=== PATIENT | male | born 1980 | race Caucasian/White ===

== ENCOUNTER 2023-12-14 13:10 | Inpatient (IN) | payer OTHER, SELFPAY ==
[2023-12-14] VITALS (20 sets, daily range): BP systolic 88–181; BP diastolic 57–108; BMI 26.0; BMI 25.9
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
[2023-12-14] MEDS: NSS 1000 IV ×3 (10:37→18:23)
[2023-12-14] MEDS: DILAUDID 1 MG IV (10:40)
[2023-12-14] MEDS: TYLENOL/FEVERALL 650 MG RECTAL (10:44)
[2023-12-14 10:45] LABS: % Basophils 0.4 % (0-2); % Immature Granulocytes 0.6 % (0-0.5); % Lymphocytes 3.3 % (20.5-51.1); % Monocytes 6.5 % (1.7-9.3); % Neutrophils 89.2 % (42.2-75.2); Absolute Basophils 0.1 10^3/uL (0-0.2); Absolute Immature Granulocytes 0.1 10^3/uL (0-0.05); Absolute Lymphocytes 0.8 10^3/uL (1.2-3.4); Absolute Monocytes 1.5 10^3/uL (0.1-0.6); Absolute Neutrophils 20.3 10^3/uL (1.4-6.5); Hematocrit 43.1 % (39.0-52.0); Hemoglobin 15.2 g/dL (13.0-18.0); Mean Corp Hgb Conc. 35.3 g/dL (33.0-37.0); Mean Corpuscular Hgb 31.5 pg (27.0-31.0); Mean Corpuscular Volume 89.4 fL (80.0-94.0); Nucleated Red Blood Cells % 0 % (-); Platelet Count 200 10^3/uL (130-400); Red Blood Cell Count 4.82 10^6/uL (4.70-6.10); Red Cell Dist. Width 12.9 % (11.5-14.5); White Blood Cell Count 22.8 10^3/uL (4.8-10.8)
[2023-12-14 10:46] LABS: Urine Albumin 2+ (Neg - Trace); Urine Bilirubin Negative (Negative); Urine Character Slightly Cloudy (Clear); Urine Color Yellow; Urine Glucose Negative (Negative); Urine Ketone Negative (Negative); Urine Leukocyte 2+ (Negative); Urine Nitrite Negative (Negative); Urine Occult Blood 4+ (Negative); Urine Urobilinogen Negative (Neg - 1+)
[2023-12-14] MEDS: ZOFRAN 4 MG IV ×2 (10:48→18:11)
[2023-12-14 10:54] LABS: Glucose - Point of Care 134 mg/dl (70-99)
[2023-12-14 10:59] LABS: Lactic Acid 2.2 mmol/L (0.7-2.0)
[2023-12-14 11:08] LABS: Urine Amorphous Seen; Urine Mucus Few; Urine Red Blood Cell >100 /HPF (0-2); Urine Squamous Cell 16-20 /LPF (Few); Urine White Cell >100 /HPF (0-5)
[2023-12-14 11:09] LABS: Urine Bacteria Few (Negative)
[2023-12-14 11:11] LABS: ALT (SGPT) 23 U/L (0-50); AST (SGOT) 30 U/L (17-59); Albumin 4.3 g/dl (3.5-5.0); Alkaline Phosphatase 63 U/L (38-126); Blood Urea Nitrogen 25 mg/dl (9-20); Calcium 9.2 mg/dl (8.4-10.2); Carbon Dioxide 26 mmol/L (22-30); Chloride 101 mmol/L (98-107); Estimated Creatinine Clearance 109 ml/min; Glucose 125 mg/dl (70-99); Potassium 3.6 mmol/L (3.5-5.1); Sodium 138 mmol/L (135-145); Total Protein 7.2 g/dl (6.3-8.2); eGFR > 60.00
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
[2023-12-14] MEDS: MAXIPIME 2000 MG IV (12:42)
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
[2023-12-14] MEDS: PERCOCET 5/325 1 TABLET PO (15:26)
[2023-12-14 15:34] LABS: Lactic Acid 1.2 mmol/L (0.7-2.0)
[2023-12-14] MEDS: FLEXERIL 10 MG PO ×2 (18:14→23:11)
[2023-12-14] MEDS: LIORESAL 20 MG PO ×2 (18:24→23:11)
[2023-12-14] MEDS: LIORESAL PO (18:24)
[2023-12-14] MEDS: MAXALT MLT (ORALLY DISINTEGRATING) 10 MG PO (18:25)
[2023-12-14 18:30] LABS: Hematocrit 38.7 % (39.0-52.0); Hemoglobin 13.3 g/dL (13.0-18.0)
[2023-12-14] MEDS: PROTONIX IV 40 MG IV (23:08)
[2023-12-14] MEDS: TOPAMAX 12.5 MG PO (23:09)
[2023-12-14] MEDS: NSS (PRESERVATIVE FREE) 10 ML IV (23:09)
[2023-12-14] MEDS: COLACE 100 MG PO (23:09)
[2023-12-14] MEDS: MELATONIN 6 MG PO (23:11)
[2023-12-14] MEDS: DULCOLAX 10 MG RECTAL (23:12)
[2023-12-14] MEDS: MAXIPIME 1000 MG IV (23:12)
[2023-12-14] MEDS: TYLENOL 650 MG PO (23:12)
[2023-12-14] MEDS: STERILE WATER FOR INJECTION 10 ML IV (23:13)
[2023-12-14] MEDS: COMPAZINE 5 MG IV (23:54)
[2023-12-15] MEDS: NSS 1000 IV ×3 (00:46→16:38)
[2023-12-15] MEDS: TYLENOL 650 MG PO (05:04)
[2023-12-15] MEDS: MAXIPIME 1000 MG IV ×2 (05:07→14:06)
[2023-12-15] MEDS: STERILE WATER FOR INJECTION 10 ML IV ×2 (05:07→14:05)
[2023-12-15 05:36] LABS: Hematocrit 37.6 % (39.0-52.0); Hemoglobin 12.7 g/dL (13.0-18.0); Mean Corp Hgb Conc. 33.8 g/dL (33.0-37.0); Mean Corpuscular Hgb 31.6 pg (27.0-31.0); Mean Corpuscular Volume 93.5 fL (80.0-94.0); Mean Platelet Volume 10.5 fL (7.4-10.4); Platelet Count 120 10^3/uL (130-400); Red Blood Cell Count 4.02 10^6/uL (4.70-6.10); White Blood Cell Count 15.1 10^3/uL (4.8-10.8)
[2023-12-15 06:01] LABS: ALT (SGPT) 18 U/L (0-50); AST (SGOT) 25 U/L (17-59); Albumin 3.1 g/dl (3.5-5.0); Alkaline Phosphatase 52 U/L (38-126); Blood Urea Nitrogen 25 mg/dl (9-20); Calcium 8.4 mg/dl (8.4-10.2); Carbon Dioxide 23 mmol/L (22-30); Chloride 107 mmol/L (98-107); Estimated Creatinine Clearance 121 ml/min; Glucose 90 mg/dl (70-99); Potassium 4.1 mmol/L (3.5-5.1); Sodium 137 mmol/L (135-145); Total Bilirubin 1.1 mg/dl (0.2-1.3); Total Protein 5.7 g/dl (6.3-8.2); eGFR > 60.00
[2023-12-15] MEDS: COMPAZINE 5 MG IV (06:19)
[2023-12-15 07:00] VITALS: BP 138/69
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
[2023-12-15] MEDS: COLACE 100 MG PO ×2 (08:32→20:17)
[2023-12-15] MEDS: PROTONIX IV 40 MG IV ×2 (08:32→20:18)
[2023-12-15] MEDS: LIORESAL 20 MG PO ×4 (08:33→21:49)
[2023-12-15] MEDS: NSS (PRESERVATIVE FREE) 10 ML IV ×2 (08:33→20:18)
[2023-12-15] MEDS: FLEXERIL 10 MG PO ×3 (08:33→21:49)
[2023-12-15] MEDS: DULCOLAX 10 MG RECTAL (08:33)
[2023-12-15] MEDS: TOPAMAX 12.5 MG PO ×2 (08:38→20:17)
--- NOTE | 2023-12-15 09:53 | W.PN.URO.CBU ---
Today's Communication / Plan
-
FOR CAT SCAN
Assessment / Plan
-
COMPLEX UTI WBC TRENDING DOWN STILL FEBRILE WILL LEAVE MACDONALD CHECK CAT SCAN AWAIT CXS
Diagnosis
-
Date of Service: December 15, 2023
-
Patient Diagnosis:NEUROGENIC BLADDER COMPLEX UTI MACDONALD TRAUMA
Post Op Day:
Subjective
-
PARALYZED
Objective
-
Vital Signs
Temp Pulse Resp BP Pulse Ox
100.2 F 91 16 138/69 99
12/15/23 07:00 12/15/23 07:00 12/15/23 07:00 12/15/23 07:00 12/15/23 07:00
Intake and Output
12/14/23 12/15/23 12/16/23
06:59 06:59 06:59
Intake Total 240 / 240
Output Total 750 / 750
Balance -510 / -510
Intake:
Oral fluids 240 / 240
Output:
Urine, Macdonald 250 / 250
Urine, Voided 500 / 500
Other:
Number of immeasurable emeses? 1
Laboratory Results
12/15/23 04:47
12/15/23 04:47
Review of Systems
-
Constitutional: Fever
: Difficulty Voiding
Physical Exam
-
General - well developed, well nourished, no acute distress
Chest - clear bilaterally
Abdomen - soft, non-tender, positive bowel sounds, no CVAT, no incisional pain or distention
Genitalia - normal
Rectal - normal
Skin - warm & dry with no rash
Neuro - PARALYZED
Extremities -
Incision - clean, dry
Dressing - clean, dry, intact
Counseling
-
0
Care Review
Data Reviewed
Discussed with: Hospitalist
[2023-12-15] MEDS: COMPAZINE 10 MG IV (11:50)
[2023-12-15] MEDS: MAXALT MLT (ORALLY DISINTEGRATING) 10 MG PO (12:43)
[2023-12-15] MEDS: ProAmatine 15 MG PO (12:43)
[2023-12-15] MEDS: SENOKOT 17.1999999999999993 MG PO (12:50)
--- NOTE | 2023-12-15 14:49 | CM ---
Patient seen at bedside with physician. Patient complaining of migraine. CM will continue to follow for discharge planning needs.
Plan; home with [facility] vs [facility] pending assessments
[2023-12-15 15:00] VITALS: BP 141/66
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
--- NOTE | 2023-12-15 15:41 | W.PN.HOSP.TC ---
Today's Communication/Plan
-
cefepime changed to Invanz by ID
repeat blood cultures
treat KRAFT
Assessment / Plan
Assessment / Plan
pt is a 43 year old male
Sepsis with lactic acidosis (by criteria and present on admission) responded to IV fluids--due to ESBL E. coli bacteremia and likely UTI--agree with cefepime--consult ID--continue IV fluids, improved WBC and lactic acid --CT scan without
obstructive uropathy
headache--likely migraine--apprec neuro--tylenol, compazine, rizatriptan
Hematemesis--patient describes 'vomiting blood that filled the trash can' this morning but his clinical picture does not match--hemoglobin 15 on admission, now 12.7--trend--some drop could be dilutional from IVF--will start IV PPI twice
daily--apprec GI
Hematuria--consistent with urinary tract infection and/or trauma from self-catheterization--patient states that he had trouble inserting the catheter and met resistance--Chun catheter is in place now--apprec urology
Paraplegia--usually goes to [place] [facility] for therapy--will continue PT and OT here
DVT prophylaxis
CODE STATUS--full code
Anticipated Discharge: > 48 hours
Subjective/Interval History
-
Date of Service: December 15, 2023
pt c/o headache
Objective Data
-
Labs:
Laboratory Results
12/15/23
04:47
WBC 15.1 H
Hgb 12.7 L
Hct 37.6 L
Plt Count 120 L D
Sodium 137
Potassium 4.1
Chloride 107
Carbon Dioxide 23
BUN 25 H
Creatinine 0.9
Glucose 90
Calcium 8.4
Total Bilirubin 1.1
AST 25
ALT 18
Alkaline Phosphatase 52
Vital Signs:
max temp for 24 hours
12/14/23
23:30
Temp 102.5 F H
Vital Signs
Temp Pulse Resp BP Pulse Ox
99.1 F 91 16 119/78 99
12/15/23 11:40 12/15/23 07:00 12/15/23 07:00 12/15/23 12:43 12/15/23 07:00
I&O
12/14/23 12/15/23 12/16/23
06:59 06:59 06:59
Intake Total 240 / 240
Output Total 750 / 750
Balance -510 / -510
Review of Systems
-
All other systems: Reviewed and negative
Neuro: Reports Headache
Physical Exam
-
General: Well Developed, Well Nourished and Other (appears uncomfortable)
HEENT: Normocephalic and Atraumatic
Respiratory: Clear to Auscultation; Negative Wheezes or Rhonchi
Cardiac: Regular Rhythm and S1/S2; Negative Murmur
GI: Soft, Nontender, Nondistended and Normal Bowel Sounds
Musculoskeletal: No Clubbing, No Cyanosis and No Edema
Neuro: Other (muscle atrophy from paraplegia)
[2023-12-15] MEDS: INVANZ 60 MG IV (16:38)
[2023-12-15] MEDS: TYLENOL 1000 MG PO ×2 (16:40→21:49)
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
[2023-12-15 20:32] VITALS: BP 106/67
[2023-12-15] MEDS: MELATONIN 6 MG PO (21:49)
[2023-12-16 00:04] VITALS: BP 124/68
[2023-12-16] MEDS: NSS 1000 IV ×3 (01:42→20:54)
[2023-12-16] MEDS: PERCOCET 5/325 1 TABLET PO (02:52)
[2023-12-16] MEDS: ZOFRAN 4 MG IV (02:53)
[2023-12-16 06:18] LABS: Hemoglobin 10.5 g/dL (13.0-18.0); Mean Corp Hgb Conc. 33.9 g/dL (33.0-37.0); Mean Corpuscular Hgb 31.2 pg (27.0-31.0); Mean Platelet Volume 9.9 fL (7.4-10.4); Platelet Count 115 10^3/uL (130-400); Red Blood Cell Count 3.37 10^6/uL (4.70-6.10); Red Cell Dist. Width 12.9 % (11.5-14.5); White Blood Cell Count 11.6 10^3/uL (4.8-10.8)
[2023-12-16 06:46] LABS: Blood Urea Nitrogen 20 mg/dl (9-20); Calcium 8.1 mg/dl (8.4-10.2); Carbon Dioxide 20 mmol/L (22-30); Chloride 109 mmol/L (98-107); Estimated Creatinine Clearance > 125 ml/min; Glucose 94 mg/dl (70-99); Potassium 3.7 mmol/L (3.5-5.1); Sodium 137 mmol/L (135-145); eGFR > 60.00
[2023-12-16 07:00] VITALS: BP 121/78
[2023-12-16] MEDS: LIORESAL 20 MG PO ×4 (09:26→22:20)
[2023-12-16] MEDS: TOPAMAX 12.5 MG PO (09:26)
[2023-12-16] MEDS: FLEXERIL 10 MG PO ×3 (09:26→22:20)
[2023-12-16] MEDS: COLACE 100 MG PO ×2 (09:26→20:20)
[2023-12-16] MEDS: PROTONIX IV 40 MG IV ×2 (09:27→20:20)
[2023-12-16] MEDS: TYLENOL 1000 MG PO (09:27)
[2023-12-16] MEDS: NSS (PRESERVATIVE FREE) 10 ML IV ×2 (09:27→20:20)
[2023-12-16] MEDS: DULCOLAX 10 MG RECTAL (09:28)
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
--- NOTE | 2023-12-16 12:10 | W.PN.URO.CBU ---
Today's Communication / Plan
-
Maintain Chun catheter to drainage (given recent difficult self-catheterization)
IV Ertapenem per ID
Trend WBC/fevers
Recommend outpatient cystoscopy to evaluate suspected bladder stone
D/w Dr. Love.
Assessment / Plan
-
ESBL E. Coli cUTI + bacteremia
Ascending right upper tract UTI
Neurogenic bladder
Suspected urethral trauma from difficult self-catheterization
12/14: CTAP w/o IV contrast => small non-obs left renal stone, moderate right perinephric stranding, empty bladder w/ high attenuation density which could represent bladder stone.
UCx/BCx: ESBL E. Coli
WBC - downtrending
Cr - WNL
Diagnosis
-
Date of Service: December 16, 2023
-
Patient Diagnosis:
ESBL E. Coli cUTI + bacteremia
Ascending right upper tract UTI
Neurogenic bladder
Suspected urethral trauma from difficult self-catheterization
Subjective
-
Chun draining well.
Objective
-
Vital Signs
Temp Pulse Resp BP Pulse Ox
98.4 F 73 15 121/78 99
12/16/23 07:00 12/16/23 07:00 12/16/23 07:00 12/16/23 07:00 12/16/23 07:00
Intake and Output
12/15/23 12/16/23 12/17/23
06:59 06:59 06:59
Intake Total 240 / 240 1839 / 1839
Output Total 750 / 750 1949
Balance -510 / -510 -110 / -110
Intake:
Oral fluids 240 / 240 340 / 340
IV fluids (Total) 1500 / 1500
Output:
Urine, Chun 250 / 250 1949
Urine, Voided 500 / 500
Other:
Number of immeasurable emeses? 1
Laboratory Results
12/16/23 06:00
12/16/23 06:00
Physical Exam
-
General - well developed, well nourished, no acute distress
Abdomen - soft, non-tender, no CVAT
Genitalia - normal, Chun catheter draining clear urine
Skin - warm & dry with no rash
Neuro - AOx3
[2023-12-16] MEDS: COMPAZINE 10 MG IV ×2 (12:23→23:01)
[2023-12-16] MEDS: ProAmatine 15 MG PO (12:23)
[2023-12-16] MEDS: MAXALT MLT (ORALLY DISINTEGRATING) 10 MG PO ×2 (12:23→15:00)
[2023-12-16] MEDS: SENOKOT 17.1999999999999993 MG PO (12:23)
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
[2023-12-16 12:36] VITALS: BP 133/82
[2023-12-16] MEDS: MAGNESIUM SULFATE 102 GRAMS IV (12:57)
[2023-12-16] MEDS: INVANZ 60 MG IV (14:59)
[2023-12-16 15:00] VITALS: BP 148/103
--- NOTE | 2023-12-16 16:20 | W.PN.HOSP.TC ---
Today's Communication/Plan
-
cont ertepenem
cont migraine treatment
Assessment / Plan
Assessment / Plan
pt is a 43 year old male
Sepsis with lactic acidosis (by criteria and present on admission) responded to IV fluids--due to ESBL E. coli bacteremia and likely UTI, cannot determine if due to intermittent st cath or due to possible bladder stone which will be pursued as
outpatient by urology--cefepime changed to Ertepenem by ID, apprec input--continue IV fluids as not eating due to migraine, improved WBC and lactic acid --CT scan without obstructive uropathy
headache--likely migraine--apprec neuro--tylenol, compazine, rizatriptan--further treatment per neuro
Hematemesis--patient describes 'vomiting blood that filled the trash can' this morning but his clinical picture does not match--hemoglobin 15 on admission, now 12.7--trend--some drop could be dilutional from IVF--will start IV PPI twice
daily--apprec GI--nothing further here
Hematuria--consistent with urinary tract infection and/or trauma from self-catheterization--patient states that he had trouble inserting the catheter and met resistance--Chun catheter is in place now--apprec urology
Paraplegia--usually goes to [facility] for therapy--will continue PT and OT here
DVT prophylaxis
CODE STATUS--full code
Anticipated Discharge: > 48 hours
Subjective/Interval History
-
Date of Service: December 16, 2023
pt with migraine--did not want to talk with me
Objective Data
-
Labs:
Laboratory Results
12/16/23
06:00
WBC 11.6 H
Hgb 10.5 L
Hct 31.0 L
Plt Count 115 L
Sodium 137
Potassium 3.7
Chloride 109 H
Carbon Dioxide 20 L
BUN 20
Creatinine 0.7
Glucose 94
Calcium 8.1 L
Vital Signs:
max temp for 24 hours
12/16/23
00:04
Temp 98.7 F
Vital Signs
Temp Pulse Resp BP Pulse Ox
98 F 84 16 148/103 97
12/16/23 15:00 12/16/23 15:00 12/16/23 15:00 12/16/23 15:00 12/16/23 15:00
I&O
12/15/23 12/16/23 12/17/23
06:59 06:59 06:59
Intake Total 240 / 240 1840 / 1840 400 / 400
Output Total 750 / 750 1950 / 1950 650 / 650
Balance -510 / -510 -110 / -110 -250 / -250
Review of Systems
-
All other systems: Reviewed and negative
Neuro: Reports Headache (migraine)
Physical Exam
-
General: Well Developed, Well Nourished and No Apparent Distress
HEENT: Normocephalic and Atraumatic
Respiratory: Clear to Auscultation; Negative Wheezes or Rhonchi
Cardiac: Regular Rhythm and S1/S2; Negative Murmur
GI: Soft, Nontender, Nondistended and Normal Bowel Sounds
Musculoskeletal: No Clubbing, No Cyanosis and No Edema
Neuro: Other (paraplegic)
[2023-12-16] MEDS: KEPPRA 1000 MG IV (18:12)
[2023-12-16] MEDS: FIORICET 1 TAB PO (18:44)
[2023-12-16] MEDS: TOPAMAX 25 MG PO (20:20)
[2023-12-16] MEDS: MELATONIN 6 MG PO (22:20)
[2023-12-16 23:55] VITALS: BP 138/94
[2023-12-17] MEDS: PERCOCET 5/325 1 TABLET PO (02:55)
[2023-12-17] MEDS: NSS 1000 IV ×3 (04:53→23:55)
[2023-12-17 06:56] LABS: Hematocrit 28.9 % (39.0-52.0); Hemoglobin 10.3 g/dL (13.0-18.0); Mean Corp Hgb Conc. 35.6 g/dL (33.0-37.0); Mean Corpuscular Hgb 31.9 pg (27.0-31.0); Mean Corpuscular Volume 89.5 fL (80.0-94.0); Mean Platelet Volume 9.8 fL (7.4-10.4); Platelet Count 124 10^3/uL (130-400); Red Blood Cell Count 3.23 10^6/uL (4.70-6.10); Red Cell Dist. Width 12.8 % (11.5-14.5); White Blood Cell Count 7.8 10^3/uL (4.8-10.8)
[2023-12-17 07:00] VITALS: BP 128/81
[2023-12-17 07:42] LABS: Blood Urea Nitrogen 11 mg/dl (9-20); Carbon Dioxide 21 mmol/L (22-30); Chloride 108 mmol/L (98-107); Estimated Creatinine Clearance > 125 ml/min; Glucose 75 mg/dl (70-99); Magnesium 2.1 mg/dl (1.6-2.3); Potassium 3.5 mmol/L (3.5-5.1); Sodium 138 mmol/L (135-145); eGFR > 60.00
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
--- NOTE | 2023-12-17 08:07 | W.PN.HOSP.TC ---
Today's Communication/Plan
-
control migraine
d/c planning once KRAFT better
Assessment / Plan
Assessment / Plan
pt is a 43 year old male
Sepsis with lactic acidosis (by criteria and present on admission) responded to IV fluids--due to ESBL E. coli bacteremia and likely UTI, cannot determine if due to intermittent st cath or due to possible bladder stone which will be pursued as
outpatient by urology--cefepime changed to Ertepenem by ID, apprec input--continue IV fluids as not eating due to migraine, WBC now normal and lactic acid normal --CT scan without obstructive uropathy--last positive blood culture was 12/13
headache--likely migraine--apprec neuro--tylenol, compazine, rizatriptan--further treatment per neuro
Hematemesis--patient describes 'vomiting blood that filled the trash can' this morning but his clinical picture does not match--hemoglobin 15 on admission, now 12.7--trend--some drop could be dilutional from IVF--will start IV PPI twice
daily--apprec GI--nothing further here
Hematuria--consistent with urinary tract infection and/or trauma from self-catheterization--patient states that he had trouble inserting the catheter and met resistance--Chun catheter is in place now--apprec urology
Paraplegia--usually goes to [facility] for therapy--will continue PT and OT here
DVT prophylaxis
CODE STATUS--full code
Anticipated Discharge: > 48 hours
Subjective/Interval History
-
Date of Service: December 17, 2023
still with migraine
Objective Data
-
Labs:
Laboratory Results
12/17/23
06:36
WBC 7.8
Hgb 10.3 L
Hct 28.9 L
Plt Count 124 L
Sodium 138
Potassium 3.5
Chloride 108 H
Carbon Dioxide 21 L
BUN 11
Creatinine 0.6 L
Glucose 75
Calcium 8.0 L
Vital Signs:
max temp for 24 hours
12/16/23
23:55
Temp 98.5 F
Vital Signs
Temp Pulse Resp BP Pulse Ox
98.5 F 92 19 138/94 97
12/16/23 23:55 12/16/23 23:55 12/16/23 23:55 12/16/23 23:55 12/16/23 23:55
I&O
12/16/23 12/17/23 12/18/23
06:59 06:59 06:59
Intake Total 1840 / 1840 3600 / 3600
Output Total 1949 / 1949 3675 / 3675
Balance -110 / -110 -75 / -75
Review of Systems
-
All other systems: Reviewed and negative
Physical Exam
-
General: Well Developed, Well Nourished and Pain (appears in pain)
HEENT: Normocephalic and Atraumatic
Respiratory: Clear to Auscultation; Negative Wheezes or Rhonchi
Cardiac: Regular Rhythm and S1/S2; Negative Murmur
GI: Soft, Nontender, Nondistended and Normal Bowel Sounds
Musculoskeletal: No Clubbing, No Cyanosis and No Edema
Neuro: Other (paraplegia)
[2023-12-17] MEDS: FLEXERIL 10 MG PO ×3 (09:02→21:07)
[2023-12-17] MEDS: TOPAMAX 25 MG PO ×2 (09:02→20:29)
[2023-12-17] MEDS: COLACE 100 MG PO ×2 (09:02→20:28)
[2023-12-17] MEDS: COMPAZINE 10 MG IV ×3 (09:02→23:18)
[2023-12-17] MEDS: PROTONIX IV 40 MG IV ×2 (09:03→20:29)
[2023-12-17] MEDS: NSS (PRESERVATIVE FREE) 10 ML IV ×2 (09:03→20:30)
[2023-12-17] MEDS: DULCOLAX 10 MG RECTAL (09:03)
[2023-12-17] MEDS: LIORESAL 20 MG PO ×4 (09:03→21:07)
[2023-12-17] MEDS: SOLU-MEDROL PF 125 MG IV (09:05)
[2023-12-17] MEDS: TYLENOL 1000 MG PO ×3 (09:05→21:08)
--- NOTE | 2023-12-17 10:55 | W.PN.URO.CBU ---
Today's Communication / Plan
-
Advised patient to go home with Chun for 5-7 days
Will resume self cath regimen as an outpatient
Assessment / Plan
-
ESBL E. Coli cUTI + bacteremia
Ascending right upper tract UTI
Neurogenic bladder
Suspected urethral trauma from difficult self-catheterization
12/14: CTAP w/o IV contrast => small non-obs left renal stone, moderate right perinephric stranding, empty bladder w/ high attenuation density which could represent bladder stone.
Repeat blood cultures negative
Diagnosis
-
Date of Service: December 17, 2023
-
Patient Diagnosis:
ESBL E. Coli cUTI + bacteremia
Ascending right upper tract UTI
Neurogenic bladder
Suspected urethral trauma from difficult self-catheterization
Subjective
-
Patient barely engaged in conversation this morning
Offered no complaints
No catheter bother
Objective
-
Vital Signs
Temp Pulse Resp BP Pulse Ox
98.9 F 85 16 128/81 93
12/17/23 07:00 12/17/23 07:00 12/17/23 07:00 12/17/23 07:00 12/17/23 07:00
Intake and Output
12/16/23 12/17/23 12/18/23
06:59 06:59 06:59
Intake Total 1840 / 1840 3600 / 3600
Output Total 1949 9665 / 3675
Balance -110 / -110 -75 / -75
Intake:
Oral fluids 340 / 340 1040 / 1040
IV fluids (Total) 1500 / 1500 2500 / 2500
IV piggybacks 60 / 60
Output:
Urine, Chun 1949 3285 / 3675
Laboratory Results
12/17/23 06:36
12/17/23 06:36
Physical Exam
-
General - well nourished, no acute distress
Abdomen - soft
Genitalia - normal with indwelling Chun draining romain urine
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
[2023-12-17] MEDS: ProAmatine 15 MG PO (13:04)
[2023-12-17] MEDS: INVANZ 60 MG IV (13:05)
[2023-12-17] MEDS: SENOKOT 17.1999999999999993 MG PO (13:05)
[2023-12-17] MEDS: DHE-45 1 MG IV ×2 (13:08→20:30)
[2023-12-17 15:00] VITALS: BP 156/102
[2023-12-17] MEDS: NSS IV (17:43)
[2023-12-17] MEDS: MELATONIN 6 MG PO (21:08)
[2023-12-17 23:24] VITALS: BP 173/113
[2023-12-18] MEDS: DHE-45 1 MG IV ×3 (04:58→19:54)
[2023-12-18 07:00] VITALS: BP 174/111
[2023-12-18 07:29] LABS: Hematocrit 36.1 % (39.0-52.0); Hemoglobin 12.8 g/dL (13.0-18.0); Mean Corp Hgb Conc. 35.5 g/dL (33.0-37.0); Mean Corpuscular Hgb 31.2 pg (27.0-31.0); Mean Platelet Volume 10.8 fL (7.4-10.4); Platelet Count 171 10^3/uL (130-400); Red Cell Dist. Width 12.3 % (11.5-14.5)
[2023-12-18 07:55] LABS: Blood Urea Nitrogen 10 mg/dl (9-20); Calcium 9.1 mg/dl (8.4-10.2); Carbon Dioxide 19 mmol/L (22-30); Chloride 111 mmol/L (98-107); Estimated Creatinine Clearance > 125 ml/min; Glucose 121 mg/dl (70-99); Magnesium 2.4 mg/dl (1.6-2.3); Potassium 3.9 mmol/L (3.5-5.1); Sodium 142 mmol/L (135-145); eGFR > 60.00
[2023-12-18 08:00] VITALS: BP 150/40
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
[2023-12-18] MEDS: LIORESAL 20 MG PO ×4 (09:37→22:20)
[2023-12-18] MEDS: FLEXERIL 10 MG PO ×3 (09:37→22:20)
[2023-12-18] MEDS: DULCOLAX 10 MG RECTAL (09:37)
[2023-12-18] MEDS: TOPAMAX 25 MG PO ×2 (09:37→19:54)
[2023-12-18] MEDS: NSS (PRESERVATIVE FREE) 10 ML IV ×2 (09:37→19:54)
[2023-12-18] MEDS: COLACE 100 MG PO ×2 (09:37→19:54)
[2023-12-18] MEDS: COMPAZINE 10 MG IV ×2 (09:38→15:41)
[2023-12-18] MEDS: PROTONIX IV 40 MG IV ×2 (09:38→19:54)
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
--- NOTE | 2023-12-18 11:39 | W.PN.HOSP.TC ---
Today's Communication/Plan
-
migraine treatment per neuro
Bactrim DS at d/c
Assessment / Plan
Assessment / Plan
pt is a 43 year old male
Sepsis with lactic acidosis (by criteria and present on admission) responded to IV fluids--due to ESBL E. coli bacteremia and likely UTI, cannot determine if due to intermittent st cath or due to possible bladder stone which will be pursued as
outpatient by urology--cefepime changed to Ertepenem by ID, apprec input--Bactrim DS BID through 12/28/23 at d/c, keeping damon at d/c per urology--continue IV fluids as not eating due to migraine, WBC now normal and lactic acid normal --CT scan
without obstructive uropathy--last positive blood culture was 12/13
headache--likely migraine--apprec neuro--tylenol, compazine, rizatriptan--further treatment per neuro
Hematemesis--patient describes 'vomiting blood that filled the trash can' this morning but his clinical picture does not match--hemoglobin 15 on admission, now 12.7--trend--some drop could be dilutional from IVF--will start IV PPI twice
daily--apprec GI--nothing further here
Hematuria--consistent with urinary tract infection and/or trauma from self-catheterization--patient states that he had trouble inserting the catheter and met resistance--Damon catheter is in place now--apprec urology
Paraplegia--usually goes to [facility] for therapy--will continue PT and OT here
DVT prophylaxis
CODE STATUS--full code
Anticipated Discharge: Within 24 hours
Subjective/Interval History
-
Date of Service: December 18, 2023
pt headache better
Objective Data
-
Labs:
Laboratory Results
12/18/23
06:43
WBC 10.0
Hgb 12.8 L D
Hct 36.1 L
Plt Count 171 D
Sodium 142
Potassium 3.9
Chloride 111 H
Carbon Dioxide 19 L
BUN 10
Creatinine 0.5 L
Glucose 121 H
Calcium 9.1
Vital Signs:
max temp for 24 hours
12/17/23
23:24
Temp 98.1 F
Vital Signs
Temp Pulse Resp BP Pulse Ox
98 F 72 18 150/40 96
12/18/23 07:00 12/18/23 08:00 12/18/23 07:00 12/18/23 08:00 12/18/23 07:00
I&O
12/17/23 12/18/23 12/19/23
06:59 06:59 06:59
Intake Total 3600 / 3600 3180 / 3180
Output Total 3675 / 3675 4925 / 4925
Balance -75 / -75 -1745 / -1745
Review of Systems
-
All other systems: Reviewed and negative
Neuro: Reports Headache (still present but improved--pt more awake and interactive)
Physical Exam
-
General: Well Developed, Well Nourished and No Apparent Distress
HEENT: Normocephalic and Atraumatic
Respiratory: Clear to Auscultation; Negative Wheezes or Rhonchi
Cardiac: Regular Rhythm and S1/S2; Negative Murmur
GI: Soft, Nontender, Nondistended and Normal Bowel Sounds
Genito-urinary: Clear Urine and Damon
Musculoskeletal: No Clubbing, No Cyanosis and No Edema
Neuro: Other (paraplegic)
[2023-12-18] MEDS: TYLENOL 1000 MG PO ×3 (11:42→22:41)
[2023-12-18] MEDS: SENOKOT 17.1999999999999993 MG PO (11:43)
[2023-12-18] MEDS: ProAmatine PO (11:44)
[2023-12-18] MEDS: NSS IV (12:06)
[2023-12-18 15:26] VITALS: BP 124/79
[2023-12-18] MEDS: INVANZ 60 MG IV (15:39)
[2023-12-18] MEDS: MELATONIN 6 MG PO (22:20)
[2023-12-18 23:21] VITALS: BP 158/110
[2023-12-19] MEDS: DHE-45 1 MG IV (05:02)
[2023-12-19] MEDS: DULCOLAX 10 MG RECTAL (05:45)
[2023-12-19 07:46] VITALS: BP 171/112
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
[2023-12-19] MEDS: COLACE 100 MG PO (09:12)
[2023-12-19] MEDS: FLEXERIL 10 MG PO ×2 (09:12→15:32)
[2023-12-19] MEDS: LIORESAL 20 MG PO ×3 (09:12→17:10)
[2023-12-19] MEDS: PROTONIX IV 40 MG IV (09:13)
[2023-12-19] MEDS: TOPAMAX 25 MG PO (09:13)
[2023-12-19] MEDS: NSS (PRESERVATIVE FREE) 10 ML IV (09:13)
[2023-12-19 09:45] VITALS: BP 147/98
[2023-12-19 11:24] VITALS: BMI 25.9
[2023-12-19] MEDS: SENOKOT 17.1999999999999993 MG PO (11:33)
[2023-12-19] MEDS: ProAmatine PO (11:33)
--- NOTE | 2023-12-19 11:51 | W.PN.HOSP.TC ---
Today's Communication/Plan
-
d/c
Assessment / Plan
Assessment / Plan
Gen: NAD, AAOx3.
Eyes: EOMI, PERRLA, no scleral icterus.
Neck: supple.
CV: RRR, +S1/S2, no m/r/g.
Resp: CTAB, no rales, wheezes, or rhonchi.
Abd: +BS, soft, NT, ND
Skin: No rashes.
Neuro: CN 2-12 intact, paraplegic
Psych: Normal mood and affect.
CT A/P: Small nonobstructing left renal calculus. No findings to suggest left-sided obstructive uropathy. Moderate right perinephric stranding limited without intravenous contrast, cannot exclude infectious process such as biloma nephritis. No
findings to suggest right renal calculus, right ureteral calculus or significant right hydroureteronephrosis. Empty urinary bladder containing apparent Damon catheter balloon and high attenuation density which could represent a bladder stone.
Sepsis, lactic acidosis, ESBL E coli bacteremia, and hematuria due to UTI:
-s/p IVFs
-due to ESBL E. coli bacteremia due to UTI
-cannot determine if due to intermittent st cath or due to possible bladder stone which will be pursued as outpatient by urology
-was on Cefepime then Ertepenem, now on Bactrim DS BID through 12/28/23 at d/c, keeping damon at d/c per urology
-leukocytosis and lactic acidosis resolved
-CT scan without obstructive uropathy--last positive blood culture was 12/13
Migraine headache:
-neuro saw in c/s
-received Fioricet, dihydroergotamine mesylate, solumedrol, IVFs, Rizatriptan
Hematemesis--patient described 'vomiting blood that filled the trash can' this morning but his clinical picture does not match--hemoglobin 15 on admission, now 12.7--trend--some drop could be dilutional from IVF--will start IV PPI twice
daily--apprec GI--nothing further here
Hematuria--consistent with urinary tract infection and/or trauma from self-catheterization--patient states that he had trouble inserting the catheter and met resistance--Damon catheter is in place now--apprec urology
Paraplegia, chronic
Total time spent on d/c = 31 min. This included today's physical exam, progress note, review of laboratory and diagnostic data, preparation of discharge documents and prescriptions, and discussions about the pt's hospital course and discharge plan
with the patient and other medical records supervisor involved in the patient's care.
Anticipated Discharge: Today
Subjective/Interval History
-
Date of Service: December 19, 2023
No new complaints.
Objective Data
-
Vital Signs:
Vital Signs
Temp Pulse Resp BP Pulse Ox
99.2 F 83 17 149/99 98
12/19/23 07:46 12/19/23 09:45 12/19/23 07:46 12/19/23 11:33 12/19/23 09:00
I&O
12/18/23 12/19/23 12/20/23
06:59 06:59 06:59
Intake Total 3180 / 3180 1380 / 1380
Output Total 4925 / 4925 1600 / 1600
Balance -1745 / -1745 -220 / -220
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
--- NOTE | 2023-12-19 12:13 | CM ---
Patient with Hx paraplegia, Neurogenic bladder with Dx sepsis - ESBL E. coli bacteremia and likely UTI.
Met with patient who says he feels ready for d/c home today. Patient states he plans on resuming outpatient PT/OT at [facility]. His mother will provide transport home today.
No CM d/c needs identified.
Plan home today.
[2023-12-19] MEDS: BACTRIM DS 800 MG/160 MG 1 TABLET PO (12:28)
--- NOTE | 2023-12-19 13:20 | W.DCSUMMARY ---
Discharge Summary
Discharge Data
Date of Admission: 12/14/23
Date of Discharge: 12/19/23
-
Pending Results: No
Hospital Course
Primary diagnoses:
Sepsis, lactic acidosis, extended spectrum beta-lactamase E coli bacteremia, and hematuria due to acute urinary tract infection
Secondary diagnoses:
Paraplegia, chronic
Consultants:
Urology
Infectious disease
Neurology
Gastroenterology
Imaging:
CT A/P: Small nonobstructing left renal calculus. No findings to suggest left-sided obstructive uropathy. Moderate right perinephric stranding limited without intravenous contrast, cannot exclude infectious process such as biloma nephritis. No
findings to suggest right renal calculus, right ureteral calculus or significant right hydroureteronephrosis. Empty urinary bladder containing apparent Chun catheter balloon and high attenuation density which could represent a bladder stone.
Hospital course: 43-year-old male who presented with hematemesis, hematuria, and 'persistent UTI' as outlined in the H&P done on admission. Patient met sepsis criteria. He had a lactic acidosis. Blood cultures grew ESBL E. coli. He had hematuria
and this was likely due to UTI as well as traumatic self-catheterization. Patient was initially on cefepime and then transition to Invanz. He was then transition to Bactrim DS BID through 12/28/23. Chun catheter was placed and this will remain in
place on discharge. He will follow-up with urology. His leukocytosis and lactic acidosis resolved. CT scan of the abdomen pelvis above and was without obstructive uropathy. Patient will follow-up with urology for definitive stone treatment.
Patient also had migraine headaches while hospitalized. He was in consultation by neurology. He received Fioricet, dihydroergotamine mesylate, solumedrol, IVFs, Rizatriptan.
The patient also had hematemesis which he described 'vomiting blood that filled the trash can' on the morning of admission. His clinical picture did not match the history. His hemoglobin was 15 on admission. On discharge his hemoglobin was 12.8
and this was likely dilutional. He was placed on Protonix twice daily. He was seen in consultation by GI and should follow-up with them after discharge.
Discharge Plan
-
Patient Disposition: Home (Routine Discharge)
Discharge Diagnosis/Procedures: Sepsis with lactic acidosis due to extended spectrum beta-lactamase Escherichia coli bacteremia and urinary tract infection due to straight catheterizations, migraine, hematemesis which resolved, hematuria, paraplegia
Condition: Good
Diet: As tolerated and Regular
Activity: As tolerated
Driving Restrictions: As prior to admission
Bathing Restrictions: None
Referrals:
Rip Coronel MD [Active] - (you have a stone in bladder and a stone in rt kidney Please make appt [facility] urologist who you normally see but if you prefer call Dr Coronel [phone] to set up appt to discuss Also see rehab doctors
about prevention of stones)
Tequila García MD [Family Provider] - in less than 1 week
Jaleesa Gupta MD [Active] - in one to two weeks (hematemesis)
Prescriptions:
New
sulfamethoxazole-trimethoprim 800-160 mg Tablet
1 tab PO BID Qty: 20 0RF
pantoprazole [Protonix] [address] for susp in packet
40 mg PO BID Qty: 60 0RF
Continued
cyclobenzaprine 10 mg tablet
10 mg PO TID
sennosides [Senna Laxative] 8.6 mg tablet
17.2 mg PO NOON
midodrine 5 mg tablet
15 mg PO NOON
topiramate 25 mg tablet
12.5 mg PO BID
melatonin 3 mg tablet
6 mg PO HS
baclofen 20 mg tablet
20 mg PO QID
bisacodyl 10 mg Suppository
10 mg IA DAILY
lidocaine 5 % Adhesive Patch,Medicated
1 patch TOPICAL DAILY PRN (Reason: topical pain)
docusate sodium 100 mg capsule
100 mg PO BID
Patient's Own Baclofen Pump
1 dose continuous intrathecal infusion .CONTINUOUS
Nitropaste
1 inch PRN (Reason: 'high BP')
Patient Comments:
Pt states 'when I go into AD with my BP high and heart rate low. I put one inch of nitropaste on my forehead when I go into AD then when my BP comes down, I wipe it off.'
Discontinued
nitrofurantoin monohyd/m-cryst 100 mg capsule
100 mg PO BID
Discharge Orders:
Discharge Patient (As Directed); Ordered 12/19/23
Ordered By: Maik Bui
Discharge Date and Time
Print Language: OCCITAN
[2023-12-19 14:22] VITALS: BP 105/69
[2023-12-19] MEDS: TYLENOL 1000 MG PO (15:32)
--- NOTE | 2023-12-19 17:12 | PTCARENOTE ---
Pt changed to leg bag and instructions given. Pt given overnight bag as well and instructed how to change from leg bag.
== END 2023-12-19 18:29 | disposition home or self-care (01) | DRG 872 ==
LOC: 4 WEST ACU 13:10
PROVIDERS: Nurse Practitioner Family; ADMITTING PHYSICIAN Internal Medicine; ATTENDING PHYSICIAN Internal Medicine; CONSULT PHYSICIAN Internal Medicine Gastroenterology; CONSULT PHYSICIAN Specialist; EMERGENCY PHYSICIAN Emergency Medicine; FAMILY PHYSICIAN Internal Medicine; OTHER PHYSICIAN Internal Medicine Infectious Disease; OTHER PHYSICIAN Student in an Organized Health Care Education/Training Program
PROC: 0T9B70Z Drainage of Bladder with Drainage Device, Via Natural or Artificial Opening (ICD-10-PCS; 2023-12-14)
DX: A41.51 Sepsis due to Escherichia coli [E. coli] (principal); G82.20 Paraplegia, unspecified; N39.0 Urinary tract infection, site not specified; K92.0 Hematemesis; E87.20 Acidosis, unspecified; Z16.12 Extended spectrum beta lactamase (ESBL) resistance; R33.9 Retention of urine, unspecified; F17.290 Nicotine dependence, other tobacco product, uncomplicated; N20.0 Calculus of kidney; G43.009 Migraine without aura, not intractable, without status migrainosus; R31.0 Gross hematuria; K59.00 Constipation, unspecified; N31.2 Flaccid neuropathic bladder, not elsewhere classified; V29.99XS Rider (driver) (passenger) of other motorcycle injured in unspecified traffic accident, sequela; Z87.440 Personal history of urinary (tract) infections; Z98.1 Arthrodesis status
CPT/HCPCS: 51702; 70450; 74176; 80048; 80053; 81003; 81015; 82962; 83605; 83735; 85014; 85018; 85025; 85027; 87040; 87070; 87077; 87086; 87149; 87186; 87205; 93005; 96361; 96374; 96375; 99291; J1335

== ENCOUNTER 2023-12-21 23:56 | Inpatient (IN) | payer OTHER, SELFPAY ==
[2023-12-21 16:05] VITALS: BMI 25.1
[2023-12-21 16:14] VITALS: BP 113/72
[2023-12-21 16:36] LABS: % Basophils 0.4 % (0-2); % Eosinophils 2.3 % (0-6); % Immature Granulocytes 0.9 % (0-0.5); % Lymphocytes 5.5 % (20.5-51.1); % Monocytes 4.6 % (1.7-9.3); % Neutrophils 86.3 % (42.2-75.2); Absolute Basophils 0.1 10^3/uL (0-0.2); Absolute Eosinophils 0.3 10^3/uL (0-0.7); Absolute Immature Granulocytes 0.1 10^3/uL (0-0.05); Absolute Lymphocytes 0.7 10^3/uL (1.2-3.4); Absolute Monocytes 0.6 10^3/uL (0.1-0.6); Absolute Neutrophils 10.6 10^3/uL (1.4-6.5); Hematocrit 34.5 % (39.0-52.0); Hemoglobin 12.5 g/dL (13.0-18.0); Mean Corp Hgb Conc. 36.2 g/dL (33.0-37.0); Mean Corpuscular Volume 85.6 fL (80.0-94.0); Mean Platelet Volume 9.2 fL (7.4-10.4); Nucleated Red Blood Cells % 0 % (-); Platelet Count 303 10^3/uL (130-400); Red Blood Cell Count 4.03 10^6/uL (4.70-6.10); Red Cell Dist. Width 12.8 % (11.5-14.5); White Blood Cell Count 12.3 10^3/uL (4.8-10.8)
[2023-12-21 16:49] LABS: Lactic Acid 1.3 mmol/L (0.7-2.0)
[2023-12-21 16:51] LABS: ALT (SGPT) 12 U/L (0-50); AST (SGOT) 16 U/L (17-59); Albumin 3.7 g/dl (3.5-5.0); Alkaline Phosphatase 60 U/L (38-126); Blood Urea Nitrogen 13 mg/dl (9-20); Calcium 8.9 mg/dl (8.4-10.2); Carbon Dioxide 22 mmol/L (22-30); Chloride 105 mmol/L (98-107); Glucose 108 mg/dl (70-99); Potassium 3.3 mmol/L (3.5-5.1); Sodium 137 mmol/L (135-145); Total Bilirubin 1.2 mg/dl (0.2-1.3); Total Protein 6.7 g/dl (6.3-8.2); eGFR > 60.00
--- NOTE | 2023-12-21 20:14 | ED.GENMED ---
History of Present Illness
General
Chief Complaint: Fever
Time Seen by Provider: 12/21/23 19:19
Travel History
Have you had any contact with someone who has COVID-19?: No
Do you have any symptoms of coronavirus? Fever > 100 degrees, chills, cough, shortness of breath, sore throat, loss of taste or smell, muscle aches, or headache?: Yes
Symptoms:: fever
History of Present Illness
History of Present Illness:
43-year-old male with history of central cord syndrome and resultant lower extremity paraplegia and neurogenic bladder requiring self-catheterization presents to the emergency department for evaluation of recurrent fever and sweating. He was
discharged in this hospital 2 days ago for a UTI, was treated inpatient with ertapenem and switched to Bactrim at discharge based on sensitivities. He was noted to have ESBL bacteremia during that time. He notes that he was discharged with a Hcun
catheter in the night that he was discharged he accidentally pulled the catheter out and has been self catheterizing since then. He states he has been incontinent of urine which is atypical for him.
Past History
Past History
ED Past Medical History: Other (paraplegic)
Review of Systems
Review of Systems
Allergies reviewed?: Yes
All Other Systems: ROS reviewed and negative except as documented in HPI and ROS
Phy Exam
Physical Exam
Physical Exam:
GEN: Diaphoretic, ill-appearing
HEENT: Oral mucosa moist, no scleral icterus
Cardiac: Tachycardic, regular
Lung: No respiratory distress, no tachypnea
Abdomen: Soft and nondistended
MSK: No gross deformity or injuries
Skin: Good color, no pallor or jaundice, no rashes
Neuro: AO x3, baseline lower extremity paralysis
Psych: Calm, cooperative
Course
Orders/Labs/Results
Orders:
Orders
12/21/23 16:30
Complete Blood Count/With Diff Urgent
Comprehensive Metabolic Panel Urgent
Lactic Acid Q4H
Comment: ON ICE, CANCEL 2ND ORDER IF FIRST LACTIC ACID LEVEL <2
Prothrombin Time Urgent
Blood Culture Q30M
ERNESTO Source: Blood/Venous
Specimen Description:
Comment: FROM 2 SEPARATE SITES
12/21/23 19:57
Chun Placement- Treatment ONCE
Reason for insertion: Acute Retention
12/21/23 20:30
Blood Culture Q30M
ERNESTO Source: Blood/Venous
Specimen Description:
Comment: FROM 2 SEPARATE SITES
12/21/23 20:57
Acetaminophen [Tylenol] 1,000 mg PO NOW STA
12/21/23 21:01
Urinalysis Reflex To Culture Urgent
Date Specimen was Collected: 12/21/23
Time Specimen was Collected: 20:58
Urine Microscopic Reflex Cult Urgent
Urine Culture Urgent
ERNESTO Source: U
Specimen Description:
Date Specimen was Collected: 12/21/23
Time Specimen was Collected: 20:58
12/21/23 21:27
CT Abd/pel Without Iv Or Oral Urgent
Comment:
Reason For Exam: urosepsis eval for obstruction
12/21/23 23:04
Admit/Transfer Patient As Directed
Co-Sign Provider:
Level of Care: Inpatient admission
Assign to:: Telemetry
Physician / Group: Htay
Diagnosis: Sepsis secondary to UTI
Reason for Telemetry: Arrhythmia
Date to Stop Telemetry: 12/24/23
Time to Stop Telemetry: 11:00
Reason for Hospitalization: IV abx
Expected length of stay greater than two midnights?: Yes
ELOS- Estimated Length of Stay in days: 3
I certify the patient meets the requirements for IP care: Yes
Ertapenem [Invanz] 1,000 mg 0.9% Sodium Chloride [Nss] 50 ml IV NOW
12/21/23 23:06
Code Status As Directed
Resuscitation Status: Full Code
12/24/23 11:00
DC Protocol for Telemetry ONCE
Abnormal Lab Results
12/21/23 12/21/23
16:30 21:01
WBC 12.3 H 10^3/uL
(4.8-10.8)
RBC 4.03 L 10^6/uL
(4.70-6.10)
Hgb 12.5 L g/dL
(13.0-18.0)
Hct 34.5 L %
(39.0-52.0)
Abs Immat Gran (auto) 0.1 H 10^3/uL
(0-0.05)
Absolute Neuts (auto) 10.6 H 10^3/uL
(1.4-6.5)
Absolute Lymphs (auto) 0.7 L 10^3/uL
(1.2-3.4)
Immature Gran % 0.9 H %
(0-0.5)
Neutrophils % 86.3 H %
(42.2-75.2)
Lymphocytes % 5.5 L %
(20.5-51.1)
PT 15.0 H Sec
(11.4-14.6)
Potassium 3.3 L mmol/L
(3.5-5.1)
Glucose 108 H mg/dl
(70-99)
AST 16 L U/L
(17-59)
Urine Ketones 3+ A
(Negative)
Ur Occult Blood Reflex 4+ A
(Negative)
Urine Bilirubin 1+ A
(Negative)
Leukocyte Esterase Rfl 1+ A
(Negative)
Urine RBC 3-6 A /HPF
(0-2)
Urine Bacteria (Reflex) Few A
(Negative)
Urine Albumin (Reflex) 1+ A
(Neg - Trace)
12/21/23 16:30
12/21/23 16:30
Vital Signs
Initial and Last Documented VS:
Initial Vital Signs
Temp Pulse Resp BP Pulse Ox
98.2 F 111 18 113/72 96
12/21/23 16:14 12/21/23 16:14 12/21/23 16:14 12/21/23 16:14 12/21/23 16:14
Last Documented Vital Signs
Temp Pulse Resp BP Pulse Ox
100.7 F H 106 25 113/72 92
12/21/23 22:00 12/21/23 21:15 12/21/23 21:15 12/21/23 16:14 12/21/23 20:15
MDM/Problems Addressed
MDM/Problems Addressed:
Patient's recurrent sepsis is likely on the basis of him repeatedly self catheterizing after accidental removal of Chun catheter. No evidence for new urinary tract obstruction. Will restart ertapenem that he was on IV while in the hospital and
readmit
*Critical Care Note
Total Time (30-74mins, 75-104mins- exclusive of procedures): Not Applicable
ED Attending Note
-
Portions of this chart may have been created with voice recognition software.� Occasional wrong word or��sound alike� substitutions may have occurred due to the inherent limitations of voice recognition software.
Discharge Plan
Departure
Patient Disposition: Admit
Date of Disposition: 12/21/23
Time of Disposition: 22:30
Admit to: Med/Surg
Presentation/result/management discussed w/ accepting MD/DO: Hospitalist
Discharge Problem:
Urinary tract infection, Sepsis
Prescriptions:
No Action
cyclobenzaprine 10 mg tablet
10 mg PO TID
sennosides [Senna Laxative] 8.6 mg tablet
17.2 mg PO NOON
midodrine 5 mg tablet
15 mg PO NOON
topiramate 25 mg tablet
12.5 mg PO BID
melatonin 3 mg tablet
6 mg PO HS
baclofen 20 mg tablet
20 mg PO QID
bisacodyl 10 mg Suppository
10 mg UT DAILY
lidocaine 5 % Adhesive Patch,Medicated
1 patch TOPICAL DAILY PRN (Reason: topical pain)
docusate sodium 100 mg capsule
100 mg PO BID
Patient's Own Baclofen Pump
1 dose continuous intrathecal infusion .CONTINUOUS
Nitropaste
1 inch topical PRN PRN (Reason: 'high BP'/'low heart rate')
Patient Comments:
Pt states 'when I go into AD with my BP high and heart rate low. I put one inch of nitropaste on my forehead when I go into AD then when my BP comes down, I wipe it off.'
sulfamethoxazole-trimethoprim 800-160 mg Tablet
1 tab PO BID Qty: 20 0RF
pantoprazole [Protonix] [address] for susp in packet
40 mg PO BID Qty: 60 0RF
Referrals:
Tequila García MD [Family Provider] -
Interventions
Interventions:
*General Assessment Last Done: 12/21/23 16:16
ED- Fall Risk Assessment Last Done: 12/21/23 21:26
*ED COVID-19 Vaccine History Last Done: 12/21/23 16:16
ED- Neurological Assessment Last Done: 12/21/23 21:26
ED-Skin Assessment Last Done: 12/21/23 21:26
Discharge Date and Time
Print Language: CZECH
[2023-12-21] MEDS: TYLENOL 1000 MG PO (21:04)
[2023-12-21 21:09] LABS: Urine Albumin 1+ (Neg - Trace); Urine Bilirubin 1+ (Negative); Urine Character Clear (Clear); Urine Color Yellow; Urine Glucose Negative (Negative); Urine Ketone 3+ (Negative); Urine Leukocyte 1+ (Negative); Urine Nitrite Negative (Negative); Urine Occult Blood 4+ (Negative); Urine Specific Gravity 1.015 (<1.030); Urine Urobilinogen 1+ (Neg - 1+)
[2023-12-21 21:24] LABS: Urine Bacteria Few (Negative)
--- NOTE | 2023-12-21 23:05 | W.PN.UPDATE ---
Update Note
Progress Note Update
This note serves as an addendum to the H&P by manager support services BEVERLY Sherri LOVETT
HPI
43M paraplegic M, chr indwelling foleys cath 2/2 neurogenic bladder HX recent admission due to Sepsis, lactic acidosis, extended spectrum beta-lactamase E coli bacteremia, and hematuria due to complicated CAUTI. He was treated with ertapenem and
switched to Bactrim at discharge based on sensitivities.
The night that he was discharged he accidentally pulled the catheter out and has been self catheterizing since then.
- has been incontinent of urine which is atypical for him
- noted T max 103 and leucocytsis at ER
Reviewed VS: Tmax 103 HR 106 BP 113/72 RR 25 POx 90 on RA
PE
Gen: Diaphoretic, chronically ill appearing , looks toxic
HEENT:aniceric , moist OM , anicteric
Neck: supple, no meningism
Lungs: CTA
Cor: tachycardic , S1 S2
Abdomen: Soft and nondistended
LIGHTING FIXTURE INSTALLER: AAO3
: wearing F cath
MS: paraplegic from nipple down
Psych: calm
Data
WCC 12.3
Hgb 12.5 was 12.8 on 12/17 , bl is mid 10s
K 3.3
nl Cr
eGFR >60
LA 1.3
UA
1+ LE
RBC 3-6
WCC 6-10
few bacteria
UCx sent
11/14/23 UCX POS ESBL E coli
12/20 CT AP Without Iv Or Oral
- Small nonobstructing left renal calculi. No findings to suggest left-sided obstructive uropathy or left perinephric stranding.
- No findings to suggest right-sided obstructive uropathy. Mild right perinephric stranding, decreased in comparison to recent prior study.
- Chun catheter balloon again seen within an empty urinary bladder. High attenuation focus again seen in the urinary bladder which could represent a stone.
- No intestinal obstruction. Small volume fluid seen in scattered nondilated loops of small bowel, nonspecific.
- Slightly increased bibasilar subsegmental atelectasis.
12/14/23 HCT
There is no acute intracranial process.
Last hospitalist admission: 12/14/23 - 12/19/23
Primary diagnoses:
Sepsis, lactic acidosis, extended spectrum beta-lactamase E coli bacteremia, and hematuria due to acute urinary tract infection
Secondary diagnoses:
Paraplegia, chronic
ASSESSMENT & PLAN
Sepsis 2/2 suspect complicated CAUTI associated with self cath
Recent Complicated ESBL E. coli UTI
Recent ESBL E. coli bacteremia was DC'd on bactrim
HX Paraplegia, neurogenic bladder need self-catheterization
- UCx
- BCx
- resume Ertapenem
- IVF
- ID consult
HX Migraine headache: seen by Neuro on ;last admission and eceived Fioricet, dihydroergotamine mesylate, solumedrol, IVFs, Rizatriptan
Paraplegia, chronic
DVT Px: SCDs
Code: full code
IP TLM
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
[2023-12-21] MEDS: INVANZ 60 MG IV (23:26)
[2023-12-21 23:56] VITALS: BMI 25.0
[2023-12-22] VITALS (13 sets, daily range): BP systolic 116–163; BP diastolic 74–107; BMI 24.6
[2023-12-22] MEDS: NSS 1000 IV ×2 (00:31→09:39)
[2023-12-22 06:06] LABS: Hemoglobin 12.2 g/dL (13.0-18.0); Mean Corp Hgb Conc. 35.9 g/dL (33.0-37.0); Mean Corpuscular Hgb 31.3 pg (27.0-31.0); Mean Corpuscular Volume 87.2 fL (80.0-94.0); Mean Platelet Volume 9.9 fL (7.4-10.4); Platelet Count 318 10^3/uL (130-400); Red Cell Dist. Width 13.1 % (11.5-14.5); White Blood Cell Count 11.7 10^3/uL (4.8-10.8)
[2023-12-22 06:30] LABS: Blood Urea Nitrogen 17 mg/dl (9-20); Calcium 8.5 mg/dl (8.4-10.2); Carbon Dioxide 21 mmol/L (22-30); Chloride 106 mmol/L (98-107); Estimated Creatinine Clearance > 125 ml/min; Glucose 84 mg/dl (70-99); Potassium 3.5 mmol/L (3.5-5.1); Sodium 139 mmol/L (135-145); eGFR > 60.00
[2023-12-22] MEDS: TYLENOL 650 MG PO (06:44)
--- NOTE | 2023-12-22 08:45 | W.PN.HOSP.TC ---
Today's Communication/Plan
-
see bold
Assessment / Plan
Assessment / Plan
Gen: NAD, AAOx3.
Eyes: EOMI, PERRLA, no scleral icterus.
Neck: supple.
CV: RRR, +S1/S2, no m/r/g.
Resp: CTAB, no rales, wheezes, or rhonchi.
Abd: +BS, soft, NT, ND
Skin: No rashes.
Neuro: CN 2-12 intact, paraplegic
Psych: Normal mood and affect.
Sepsis secondary to UTIs, suspect recurrent ESBL E. coli:
-cont Invanz
-c/s ID
-follow UCx/BCxs
-Chun catheter placed in ED which will remain in place until seen by Urology as outpatient
Other problems:
Paraplegia, chronic: Wheelchair bound at baseline. Continue Baclofen/Cyclobenzaprine/bowel regimen
Migraine Headaches: Continue topiramate
Hypokalemia, resolved
FULL/SCDs
Anticipated Discharge: 24 - 48 hours
Subjective/Interval History
-
Date of Service: December 22, 2023
No new complaints.
Objective Data
-
Labs:
Laboratory Results
12/22/23
04:33
WBC 11.7 H
Hgb 12.2 L
Hct 34.0 L
Plt Count 318
Sodium 139
Potassium 3.5
Chloride 106
Carbon Dioxide 21 L
BUN 17
Creatinine 0.7
Glucose 84
Calcium 8.5
Vital Signs:
Vital Signs
Temp Pulse Resp BP Pulse Ox
99.7 F 87 18 116/74 92
12/21/23 23:40 12/22/23 06:15 12/22/23 06:15 12/22/23 06:00 12/21/23 20:15
I&O
12/21/23 12/22/23 12/23/23
06:59 06:59 06:59
Output Total 200 / 200
Balance -200 / -200
[2023-12-22] MEDS: COLACE 100 MG PO ×2 (08:55→20:39)
[2023-12-22] MEDS: FLEXERIL 10 MG PO ×3 (08:55→22:27)
[2023-12-22] MEDS: DULCOLAX 10 MG RECTAL (08:55)
[2023-12-22] MEDS: TOPAMAX 12.5 MG PO ×2 (09:18→20:41)
[2023-12-22] MEDS: LIORESAL 20 MG PO ×4 (09:19→22:27)
[2023-12-22] MEDS: PREVACID 30 MG PO ×2 (09:20→20:40)
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
[2023-12-22] MEDS: ProAmatine PO (11:16)
[2023-12-22] MEDS: SENOKOT 17.1999999999999993 MG PO (12:35)
--- NOTE | 2023-12-22 16:06 | PTCARENOTE ---
Received this pt from ED, VSS, resting comfortably in bed at this time. Call queen within reach.
[2023-12-22] MEDS: MELATONIN 6 MG PO (22:27)
[2023-12-22] MEDS: INVANZ 60 MG IV (22:40)
[2023-12-23] MEDS: NSS 1000 IV ×2 (01:12→12:16)
[2023-12-23 03:43] VITALS: BP 126/74
[2023-12-23 07:50] VITALS: BP 117/78
--- NOTE | 2023-12-23 08:23 | W.PN.HOSP.TC ---
Today's Communication/Plan
-
see bold
Assessment / Plan
Assessment / Plan
Gen: NAD, AAOx3.
Eyes: EOMI, PERRLA, no scleral icterus.
Neck: supple.
CV: remains RRR, +S1/S2, no m/r/g.
Resp: remains CTAB, no rales, wheezes, or rhonchi.
Abd: remains +BS, soft, NT, ND
Skin: No rashes.
Neuro: CN 2-12 intact, paraplegic
Psych: Normal mood and affect.
12/21/23 23:36 Blood/Venous Blood Culture - Preliminary
No Growth in 24 hours- Final report to follow
12/21/23 16:30 Blood/Venous Blood Culture - Preliminary
No Growth in 24 hours- Final report to follow
Sepsis secondary to UTIs, suspect recurrent ESBL E. coli:
-cont Invanz as per ID
-follow UCx/BCxs
-Chun catheter placed in ED which will remain in place until seen by Urology as outpatient
Other problems:
Paraplegia, chronic: Wheelchair bound at baseline. Continue Baclofen/Cyclobenzaprine/bowel regimen
Migraine Headaches: Continue topiramate
Hypokalemia, resolved
FULL/SCDs
Anticipated Discharge: 24 - 48 hours
Subjective/Interval History
-
Date of Service: December 23, 2023
No new complaints.
Objective Data
-
Vital Signs:
Vital Signs
Temp Pulse Resp BP Pulse Ox
98.6 F 75 16 126/74 94
12/23/23 03:43 12/23/23 03:43 12/23/23 03:43 12/23/23 03:43 12/23/23 03:43
I&O
12/22/23 12/23/23 12/24/23
06:59 06:59 06:59
Intake Total 2620 / 2620
Output Total 200 / 200 1950 / 1950
Balance -200 / -200 670 / 670
[2023-12-23] MEDS: FLEXERIL 10 MG PO ×3 (09:06→21:02)
[2023-12-23] MEDS: LIORESAL 20 MG PO ×4 (09:07→21:02)
[2023-12-23] MEDS: PREVACID 30 MG PO ×2 (09:07→20:56)
[2023-12-23] MEDS: TOPAMAX 12.5 MG PO ×2 (09:08→21:01)
[2023-12-23] MEDS: COLACE 100 MG PO ×2 (09:08→20:56)
[2023-12-23] MEDS: DULCOLAX 10 MG RECTAL (09:09)
[2023-12-23 09:49] LABS: Hematocrit 32.4 % (39.0-52.0); Hemoglobin 11.1 g/dL (13.0-18.0); Mean Corp Hgb Conc. 34.3 g/dL (33.0-37.0); Mean Corpuscular Hgb 30.7 pg (27.0-31.0); Mean Corpuscular Volume 89.8 fL (80.0-94.0); Mean Platelet Volume 9.3 fL (7.4-10.4); Platelet Count 322 10^3/uL (130-400); Red Blood Cell Count 3.61 10^6/uL (4.70-6.10)
[2023-12-23 11:25] LABS: Blood Urea Nitrogen 11 mg/dl (9-20); Calcium 8.3 mg/dl (8.4-10.2); Carbon Dioxide 25 mmol/L (22-30); Chloride 111 mmol/L (98-107); Estimated Creatinine Clearance > 125 ml/min; Glucose 99 mg/dl (70-99); Potassium 3.3 mmol/L (3.5-5.1); Sodium 140 mmol/L (135-145); eGFR > 60.00
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
[2023-12-23] MEDS: SENOKOT 17.1999999999999993 MG PO (12:19)
[2023-12-23] MEDS: ProAmatine 15 MG PO (12:19)
[2023-12-23 12:21] VITALS: BP 114/76
[2023-12-23] MEDS: TYLENOL 650 MG PO (15:54)
[2023-12-23 15:55] VITALS: BP 131/86
--- NOTE | 2023-12-23 18:57 | CM ---
met with patient at bedside.he lives with his brother in house with 3 steps to enter(ramp in front of house),hehas chronic paraplegia and is wc bound at baseline.he is independent with his wc and needs A bathing.usually A bymother and sister.his pcp
is dr nina pena and he uses [facility] on [address] in [place].he has had a vn after dc from [facility].he has also been ip at [facility] in [place].
patient is adm with prostatitis and is on iv ertapenem day 8 out of 14 days-last day 12/27.patient wants to stay in hospital because last time he went home his dogs(3) pulled out his damon and he had to come to hospital.he is also home alone since his
brother works.i did send referral to [facility] for pricing.i have also suggested going to a snf facility for his iv abx.he has had a bad experience at [facility] so he doesnot want to go to rehab.he still does not have his midline in yet home vs
snf.
[2023-12-23] MEDS: TOPAMAX PO (20:56)
[2023-12-23] MEDS: MELATONIN 6 MG PO (21:02)
[2023-12-23] MEDS: INVANZ 60 MG IV (23:04)
[2023-12-23 23:16] VITALS: BP 113/62
[2023-12-24 06:49] LABS: Hematocrit 33.1 % (39.0-52.0); Hemoglobin 11.4 g/dL (13.0-18.0); Mean Corp Hgb Conc. 34.4 g/dL (33.0-37.0); Mean Corpuscular Hgb 31.1 pg (27.0-31.0); Mean Corpuscular Volume 90.4 fL (80.0-94.0); Mean Platelet Volume 9.5 fL (7.4-10.4); Platelet Count 352 10^3/uL (130-400); Red Blood Cell Count 3.66 10^6/uL (4.70-6.10); White Blood Cell Count 7.4 10^3/uL (4.8-10.8)
[2023-12-24 07:05] VITALS: BP 120/74
[2023-12-24 07:13] LABS: Blood Urea Nitrogen 8 mg/dl (9-20); Calcium 8.6 mg/dl (8.4-10.2); Carbon Dioxide 25 mmol/L (22-30); Chloride 109 mmol/L (98-107); Estimated Creatinine Clearance > 125 ml/min; Glucose 93 mg/dl (70-99); Potassium 3.7 mmol/L (3.5-5.1); Sodium 142 mmol/L (135-145); eGFR > 60.00
--- NOTE | 2023-12-24 09:39 | W.PN.HOSP.TC ---
Today's Communication/Plan
-
Pt refusing to leave the hospital until Invanz course completed. As per nursing pt refusing midline.
Assessment / Plan
Assessment / Plan
Gen: NAD, AAOx3.
Eyes: EOMI, PERRLA, no scleral icterus.
Neck: supple.
CV: continues to remain RRR, +S1/S2, no m/r/g.
Resp: continues to remain CTAB, no rales, wheezes, or rhonchi.
Abd: continues to remain+BS, soft, NT, ND
Skin: No rashes.
Neuro: CN 2-12 intact, paraplegic
Psych: Normal mood and affect.
12/21/23 23:36 Blood/Venous Blood Culture - Preliminary
No Growth in 48 hours- Final report to follow
12/21/23 16:30 Blood/Venous Blood Culture - Preliminary
No Growth in 48 hours- Final report to follow
12/22/23 11:05 Nose MRSA Screen - Final
No Methicillin Resistant Staphylococcus aureus isolated.
12/21/23 21:01 Urine Urine Culture - Final
NO GROWTH
Drug fever, recent recurrent ESBL E. coli UTI:
-fever on admission likely drug fever due to Bactrim
-BCxs/UCx NG, sepsis on admission and during this hospitalization has been ruled out
-cont Invanz for 14 days as per ID
-Chun catheter placed in ED which will remain in place until seen by Urology as outpatient
Other problems:
Paraplegia, chronic: Wheelchair bound at baseline. Continue Baclofen/Cyclobenzaprine/bowel regimen
Migraine Headaches: Continue topiramate
Hypokalemia, resolved
FULL/SCDs
Anticipated Discharge: > 48 hours
Subjective/Interval History
-
Date of Service: December 24, 2023
No new complaints.
Objective Data
-
Labs:
Laboratory Results
12/24/23
06:15
WBC 7.4
Hgb 11.4 L
Hct 33.1 L
Plt Count 352
Sodium 142
Potassium 3.7
Chloride 109 H
Carbon Dioxide 25
BUN 8 L
Creatinine 0.5 L
Glucose 93
Calcium 8.6
Vital Signs:
Vital Signs
Temp Pulse Resp BP Pulse Ox
97.8 F 73 16 120/74 96
12/24/23 07:05 12/24/23 07:05 12/24/23 07:05 12/24/23 07:05 12/24/23 07:05
I&O
12/23/23 12/24/23 12/25/23
06:59 06:59 06:59
Intake Total 2620 / 2620 2840 / 2840
Output Total 1949 / 1949 4750 / 4750
Balance 670 / 670 -1909 / -1909
[2023-12-24] MEDS: DULCOLAX 10 MG RECTAL (09:47)
[2023-12-24] MEDS: TOPAMAX 12.5 MG PO ×2 (09:47→21:20)
[2023-12-24] MEDS: FLEXERIL 10 MG PO ×3 (09:47→21:20)
[2023-12-24] MEDS: COLACE 100 MG PO ×2 (09:48→21:20)
[2023-12-24] MEDS: PREVACID 30 MG PO ×2 (09:48→21:20)
[2023-12-24] MEDS: LIORESAL 20 MG PO ×4 (09:48→21:20)
--- NOTE | 2023-12-24 11:20 | CM ---
Call received from weekend coverage at [facility] asking if patient had midline placed and to send to [facility]. Chart reviewed. NO midline in and no plan for weekend discharge. Per [facility] patient has 100 % coverage if he has met his annual
deductible.
[facility] worker was going to call patient's cell phone to go over cost of drug.
[2023-12-24] MEDS: SENOKOT 17.1999999999999993 MG PO (13:19)
[2023-12-24] MEDS: ProAmatine 15 MG PO (13:19)
[2023-12-24 15:00] VITALS: BP 137/87
[2023-12-24] MEDS: MELATONIN 6 MG PO (21:20)
[2023-12-24] MEDS: INVANZ 60 MG IV (22:23)
[2023-12-24 23:48] VITALS: BP 116/77
[2023-12-25 07:09] LABS: Hematocrit 35.6 % (39.0-52.0); Hemoglobin 12.6 g/dL (13.0-18.0); Mean Corp Hgb Conc. 35.4 g/dL (33.0-37.0); Mean Corpuscular Hgb 31.8 pg (27.0-31.0); Mean Corpuscular Volume 89.9 fL (80.0-94.0); Mean Platelet Volume 9.6 fL (7.4-10.4); Platelet Count 400 10^3/uL (130-400); Red Blood Cell Count 3.96 10^6/uL (4.70-6.10); Red Cell Dist. Width 12.7 % (11.5-14.5); White Blood Cell Count 7.8 10^3/uL (4.8-10.8)
[2023-12-25 07:48] VITALS: BP 120/77
--- NOTE | 2023-12-25 07:50 | W.PN.HOSP.TC ---
Today's Communication/Plan
-
Pt refusing to leave the hospital until Invanz course completed. Continues to refuse midline.
Assessment / Plan
Assessment / Plan
Gen: remains NAD, AAOx3.
Eyes: remains EOMI, PERRLA, no scleral icterus.
Neck: supple.
CV: RRR, +S1/S2, no m/r/g.
Resp: CTAB, no rales, wheezes, or rhonchi.
Abd: BS, soft, NT, ND
Skin: No rashes.
Neuro: remains CN 2-12 intact, paraplegic
Psych: Normal mood and affect.
12/21/23 23:36 Blood/Venous Blood Culture - Preliminary
No Growth in 72 hours- Final report to follow
12/21/23 16:30 Blood/Venous Blood Culture - Preliminary
No Growth in 72 hours- Final report to follow
12/22/23 11:05 Nose MRSA Screen - Final
No Methicillin Resistant Staphylococcus aureus isolated.
12/21/23 21:01 Urine Urine Culture - Final
NO GROWTH
Drug fever, recent recurrent ESBL E. coli UTI:
-fever on admission likely drug fever due to Bactrim
-BCxs/UCx NG, sepsis on admission and during this hospitalization has been ruled out
-cont Invanz for 14 days as per ID
-Chun catheter placed in ED which will remain in place until seen by Urology as outpatient
Other problems:
Paraplegia, chronic: Wheelchair bound at baseline. Continue Baclofen/Cyclobenzaprine/bowel regimen
Migraine Headaches: Continue topiramate
Hypokalemia, resolved
FULL/SCDs
Anticipated Discharge: > 48 hours
Subjective/Interval History
-
Date of Service: December 25, 2023
Objective Data
-
Labs:
Laboratory Results
12/25/23
06:34
WBC 7.8
Hgb 12.6 L
Hct 35.6 L
Plt Count 400
Vital Signs:
Vital Signs
Temp Pulse Resp BP Pulse Ox
97.6 F 73 16 120/77 99
12/25/23 07:48 12/25/23 07:48 12/25/23 07:48 12/25/23 07:48 12/25/23 07:48
I&O
12/24/23 12/25/23 12/26/23
06:59 06:59 06:59
Intake Total 2840 / 2840 2340 / 2340
Output Total 4750 / 4750 2675 / 2675
Balance -0 / -0 -335 / -335
[2023-12-25] MEDS: TOPAMAX 12.5 MG PO ×2 (08:08→20:21)
[2023-12-25] MEDS: LIORESAL 20 MG PO ×4 (08:08→22:07)
[2023-12-25] MEDS: FLEXERIL 10 MG PO ×3 (08:08→22:06)
[2023-12-25] MEDS: DULCOLAX 10 MG RECTAL (08:08)
[2023-12-25] MEDS: COLACE 100 MG PO ×2 (08:09→20:20)
[2023-12-25] MEDS: PREVACID 30 MG PO ×2 (08:09→20:20)
[2023-12-25] MEDS: ProAmatine 15 MG PO (13:26)
[2023-12-25] MEDS: SENOKOT 17.1999999999999993 MG PO (13:26)
[2023-12-25 15:55] VITALS: BP 116/75
[2023-12-25] MEDS: MELATONIN 6 MG PO (22:06)
[2023-12-25] MEDS: INVANZ 60 MG IV (22:07)
[2023-12-25 23:01] VITALS: BP 131/89
[2023-12-26 06:56] LABS: Hematocrit 34.9 % (39.0-52.0); Mean Corp Hgb Conc. 34.4 g/dL (33.0-37.0); Mean Corpuscular Hgb 31.3 pg (27.0-31.0); Mean Corpuscular Volume 90.9 fL (80.0-94.0); Mean Platelet Volume 9.6 fL (7.4-10.4); Platelet Count 411 10^3/uL (130-400); Red Blood Cell Count 3.84 10^6/uL (4.70-6.10); Red Cell Dist. Width 12.8 % (11.5-14.5); White Blood Cell Count 8.4 10^3/uL (4.8-10.8)
[2023-12-26 08:46] VITALS: BP 130/89
[2023-12-26] MEDS: TOPAMAX 12.5 MG PO (09:14)
[2023-12-26] MEDS: LIORESAL 20 MG PO ×3 (09:14→17:25)
[2023-12-26] MEDS: COLACE 100 MG PO (09:14)
[2023-12-26] MEDS: PREVACID 30 MG PO (09:16)
[2023-12-26] MEDS: DULCOLAX 10 MG RECTAL (09:16)
[2023-12-26] MEDS: FLEXERIL 10 MG PO ×2 (09:16→15:37)
--- NOTE | 2023-12-26 12:03 | W.PN.HOSP.TC ---
Addendum entered and electronically signed by Tavo Vasquez MD 12/26/23 16:32:
Spoke with infectious disease (Dr. Tellez) and she is agreeable to discharge patient after dose of fosfomycin. Spoke with patient who asked me to update his Sister Leyda wills. Spoke with sister at [phone]. Updated her regarding plan to
discharge today after fosfomycin.
Time of discharge 38 minutes
Addendum entered and electronically signed by Tavo Vasquez MD 12/26/23 15:15:
Mother updated over the phone
Original Note:
Today's Communication/Plan
-
monitor vitals
see plan
cw abx
ID to see if any other options since patient refusing midline and dc on IV abx
Assessment / Plan
Assessment / Plan
Gen: remains NAD, AAOx3.
Eyes: remains EOMI, PERRLA, no scleral icterus.
Neck: supple.
CV: RRR, +S1/S2, no m/r/g.
Resp: CTAB, no rales, wheezes, or rhonchi.
Abd: BS, soft, NT, ND
Skin: No rashes.
Neuro: remains CN 2-12 intact, paraplegic
Psych: Normal mood and affect.
12/21/23 23:36 Blood/Venous Blood Culture - Preliminary
No Growth in 72 hours- Final report to follow
12/21/23 16:30 Blood/Venous Blood Culture - Preliminary
No Growth in 72 hours- Final report to follow
12/22/23 11:05 Nose MRSA Screen - Final
No Methicillin Resistant Staphylococcus aureus isolated.
12/21/23 21:01 Urine Urine Culture - Final
NO GROWTH
Drug fever, recent recurrent ESBL E. coli UTI:
-fever on admission likely drug fever due to Bactrim
-BCxs/UCx NG, sepsis on admission and during this hospitalization has been ruled out
-cont Invanz for 14 days as per ID; last day 12/28/23. patient is refusing midline
-Chun catheter placed in ED which will remain in place until seen by Urology as outpatient
Other problems:
Paraplegia, chronic: Wheelchair bound at baseline. Continue Baclofen/Cyclobenzaprine/bowel regimen
Migraine Headaches: Continue topiramate
Hypokalemia, resolved
FULL/SCDs
Anticipated Discharge: 24 - 48 hours
Subjective/Interval History
-
Date of Service: December 26, 2023
denies pain
Objective Data
-
Labs:
Laboratory Results
12/26/23
05:49
WBC 8.4
Hgb 12.0 L
Hct 34.9 L
Plt Count 411 H
Vital Signs:
Vital Signs
Temp Pulse Resp BP Pulse Ox
98.0 F 77 15 130/89 95
12/26/23 08:46 12/26/23 08:46 12/26/23 08:46 12/26/23 08:46 12/26/23 08:46
I&O
12/25/23 12/26/23 12/27/23
06:59 06:59 06:59
Intake Total 2340 / 2340 1920 / 1920
Output Total 2675 / 2675 1300 / 1300
Balance -335 / -335 620 / 620
[2023-12-26] MEDS: ProAmatine 15 MG PO (12:38)
[2023-12-26] MEDS: SENOKOT 17.1999999999999993 MG PO (12:38)
[2023-12-26 15:55] VITALS: BP 154/85
--- NOTE | 2023-12-26 16:41 | CM ---
CM alerted by physican after hours that pt is ready for dc and may need ride home
VM left for pt's mother requesting she makes arrangements by family for ride home
Discharge Disposition- home, no needs
[2023-12-26] MEDS: MONUROL 3 GM PO (17:22)
--- NOTE | 2023-12-26 17:30 | W.PN.UPDATE ---
Update Note
Progress Note Update
Can complete course with x1 dose of fosfomycin
then stable for dc from ID perspective
--- NOTE | 2023-12-26 18:53 | W.DCSUMMARY ---
Discharge Summary
Discharge Data
Date of Admission: 12/21/23
Date of Discharge: 12/26/23
-
Pending Results: No
Hospital Course
43-year-old male with past medical history of paraplegia, migraine, recent ESBL E. coli, nephrolithiasis, urinary retention with Chun catheter came to the hospital after being recently discharged on Bactrim with fever. Patient was seen by
infectious disease and. Patient fever was thought likely from drug fever. Initially plan was for patient to be discharged on ertapenem however patient continues to refuse midline/PICC line for home. Infectious disease then felt comfortable
starting patient on fosfomycin to complete the course of antibiotics. Patient was given a dose of fosfomycin to complete his UTI course. Since patient symptoms were improving, he was then instructed to follow-up with all his physicians outpatient.
Since he was recently discharged, he was instructed to follow-up with all the instructions from previous discharge including follow-up closely with urology.
Discharge Plan
-
Patient Disposition: [facility]
Discharge Diagnosis/Procedures: Drug fever
Recent recurrent ESBL E. coli urinary tract infection
Recent nephrolithiasis
Diet: As tolerated
Activity: As tolerated
Driving Restrictions: As prior to admission
Bathing Restrictions: None
Referrals:
Rip Coronel MD [Active] - in less than 1 week
Tequila García MD [Family Provider] - in less than 1 week
Beba Tellze MD [Active] -
Prescriptions:
New
acetaminophen 325 mg Tablet
650 mg PO Q4HPRN PRN (Reason: mild pain/ fever>100.5F) Qty: 0 0RF
Continued
cyclobenzaprine 10 mg tablet
10 mg PO TID
sennosides [Senna Laxative] 8.6 mg tablet
17.2 mg PO NOON
midodrine 5 mg tablet
15 mg PO NOON
melatonin 3 mg tablet
6 mg PO HS
baclofen 20 mg tablet
20 mg PO QID
bisacodyl 10 mg Suppository
10 mg SC DAILY
lidocaine 5 % Adhesive Patch,Medicated
1 patch TOPICAL DAILY PRN (Reason: topical pain)
docusate sodium 100 mg capsule
100 mg PO BID
Patient's Own Baclofen Pump
1 dose continuous intrathecal infusion .CONTINUOUS
Patient Comments:
12/22/23
Dr Rocio Ro [facility] [phone]-
next appt 01/25/24; pump refill 03/08/24
Nitropaste
1 inch topical PRN PRN (Reason: 'high BP'/'low heart rate')
Patient Comments:
Pt states 'when I go into AD with my BP high and heart rate low. I put one inch of nitropaste on my forehead when I go into AD then when my BP comes down, I wipe it off.'
pantoprazole [Protonix] [address] for susp in packet
40 mg PO BID Qty: 60 0RF
Changed
topiramate 25 mg tablet
12.5 mg PO BID Qty: 0 0RF
Discontinued
sulfamethoxazole-trimethoprim 800-160 mg tablet
1 tab PO BID
Discharge Orders:
Discharge Patient (As Directed); Ordered 12/26/23
Ordered By: Tavo Vasquez
Discharge Date and Time
Discharge Date/Time: 12/26/23 19:39
Print Language: PALAUAN
== END 2023-12-26 19:39 | disposition home or self-care (01) | DRG 699 ==
LOC: 2 NORTH 23:56
PROVIDERS: Internal Medicine; Physician Assistant; Physician Assistant Medical; Student in an Organized Health Care Education/Training Program; ADMITTING PHYSICIAN Internal Medicine; ATTENDING PHYSICIAN Internal Medicine; EMERGENCY PHYSICIAN Emergency Medicine; FAMILY PHYSICIAN Internal Medicine; OTHER PHYSICIAN Internal Medicine Infectious Disease
DX: T83.518A Infection and inflammatory reaction due to other urinary catheter, initial encounter (principal); E87.20 Acidosis, unspecified; N39.0 Urinary tract infection, site not specified; G82.20 Paraplegia, unspecified; N31.9 Neuromuscular dysfunction of bladder, unspecified; Y84.6 Urinary catheterization as the cause of abnormal reaction of the patient, or of later complication, without mention of misadventure at the time of the procedure; Z99.3 Dependence on wheelchair; E87.6 Hypokalemia
CPT/HCPCS: 51702; 71046; 74176; 80048; 80053; 81003; 81015; 83605; 85025; 85027; 85610; 87040; 87070; 87086; 96365; 99285; 99406; J1335

== ENCOUNTER 2024-02-20 00:49 | Emergency (ER) | payer OTHER, SELFPAY ==
[2024-02-20] VITALS (9 sets, daily range): BP systolic 108–177; BP diastolic 78–119; BMI 23.8
--- NOTE | 2024-02-20 01:02 | ED.GENMED ---
History of Present Illness
<Varsha Damon MD - Last Filed: 02/20/24 06:50>
General
Chief Complaint: Male Genito-Urinary Symptoms
Time Seen by Provider: 02/20/24 01:26
<NATE Voss - Last Filed: 02/20/24 03:03>
History of Present Illness
History of Present Illness:
Pt is a 44 y/o paraplegic male presenting with altered mental status. Pt states at around 1930 he started to 'feel drunk.' He states he noticed slow speech, having a hard time staying awake, and change in vision. Pt states that he had surgery on
for kidney stones and they placed a stent in his right kidney. Pt has had a damon catheter since the surgery and he notes increasing blood in the bag. He states that there was some light blood but today he started getting dark red blood. Pt
has has urosepsis in the past and states his symptoms feel different today. He denies any fevers, chills, HAs, SOB, CP, nausea, vomiting, change in bowel habits.
Past History
<NATE Voss - Last Filed: 02/20/24 03:03>
Past History
ED Past Medical History: Other (paraplegic)
Phy Exam
<NATE Voss - Last Filed: 02/20/24 03:03>
Physical Exam
Physical Exam:
General: Pt is AAOx3 in no acute distress.
Eyes: PERRLA, behzad noted on left eye.
Pulm: CTA b/l.
Cardio: RRR. No murmurs.
Abdominal: Abdomen is mildly distended. Baclofen pump is palpated on exam. Abdomen is soft and nontender.
PV: No edema present.
Neuro: Pt is AAOx3. He answers all questions appropriately. CN II-XII intact.
Course
<Varsha Damon MD - Last Filed: 02/20/24 06:50>
Orders/Labs/Results
Orders:
Orders
02/20/24 00:58
Urinalysis Reflex To Culture Urgent
Date Specimen was Collected: 02/20/24
Time Specimen was Collected: 00:56
Urine Microscopic Reflex Cult Urgent
Urine Culture Urgent
ERNESTO Source: U
Specimen Description:
Date Specimen was Collected: 02/20/24
Time Specimen was Collected: 00:56
02/20/24 01:27
Electrocardiogram (*1) Urgent
Reason for Study: Other
Other Reason for Exam: sepsis
Cardiac Monitoring- Treatment ONCE
EKG- Treatment ONCE
Pulse Ox/cont/shift [RESP] Urgent
Quantity: 1
02/20/24 01:30
CT Abd/pel Without Iv Or Oral Stat
Comment:
Reason For Exam: RECENT STENT PLACEMENT, NOW MENTAL STATUS CHANGE
02/20/24 01:43
Complete Blood Count/With Diff Urgent
Comprehensive Metabolic Panel Urgent
Lactic Acid Q4H
Comment: CANCEL 2nd LACTIC ACID IF 1st LACTIC ACID IS LESS THAN 2
Troponin I Urgent
Blood Culture Urgent
ERNESTO Source: Blood/Venous
Specimen Description:
Influenza A+B Rapid Molecular Urgent
ERNESTO Source: Nasal Swab
Specimen Description:
02/20/24 02:43
COVID-19 Antigen Urgent
Source: Nasal Swab
Abnormal Lab Results
02/20/24 02/20/24
00:58 01:43
RBC 4.04 L 10^6/uL
(4.70-6.10)
Hgb 12.5 L g/dL
(13.0-18.0)
Hct 34.9 L %
(39.0-52.0)
Absolute Neuts (auto) 7.0 H 10^3/uL
(1.4-6.5)
Absolute Monos (auto) 0.8 H 10^3/uL
(0.1-0.6)
Lymphocytes % 19.2 L %
(20.5-51.1)
Chloride 110 H mmol/L
(98-107)
BUN 25 H mg/dl
(9-20)
Glucose 100 H mg/dl
(70-99)
Lactic Acid < 0.5 L mmol/L
(0.7-2.0)
Urine Ketones 1+ A
(Negative)
Ur Occult Blood Reflex 4+ A
(Negative)
Leukocyte Esterase Rfl 2+ A
(Negative)
Urine RBC >100 A /HPF
(0-2)
Urine Albumin (Reflex) 3+ A
(Neg - Trace)
02/20/24 01:43
02/20/24 01:43
Vital Signs
Initial and Last Documented VS:
Initial Vital Signs
Temp Pulse Resp BP Pulse Ox
98.1 F 97 19 177/119 97
02/20/24 00:50 02/20/24 00:50 02/20/24 00:50 02/20/24 00:50 02/20/24 00:50
Last Documented Vital Signs
Temp Pulse Resp BP Pulse Ox
98.1 F 63 15 108/94 94
02/20/24 00:50 02/20/24 06:15 02/20/24 06:15 02/20/24 06:01 02/20/24 06:15
<NATE Voss - Last Filed: 02/20/24 03:03>
Orders/Labs/Results
Orders:
Orders
02/20/24 00:58
Urinalysis Reflex To Culture Urgent
Date Specimen was Collected: 02/20/24
Time Specimen was Collected: 00:56
Urine Microscopic Reflex Cult Urgent
Urine Culture Urgent
ERNESTO Source: U
Specimen Description:
Date Specimen was Collected: 02/20/24
Time Specimen was Collected: 00:56
02/20/24 01:27
Electrocardiogram (*1) Urgent
Reason for Study: Other
Other Reason for Exam: sepsis
Cardiac Monitoring- Treatment ONCE
EKG- Treatment ONCE
Pulse Ox/cont/shift [RESP] Urgent
Quantity: 1
02/20/24 01:30
CT Abd/pel Without Iv Or Oral Stat
Comment:
Reason For Exam: RECENT STENT PLACEMENT, NOW MENTAL STATUS CHANGE
02/20/24 01:43
Complete Blood Count/With Diff Urgent
Comprehensive Metabolic Panel Urgent
Lactic Acid Q4H
Comment: CANCEL 2nd LACTIC ACID IF 1st LACTIC ACID IS LESS THAN 2
Troponin I Urgent
Blood Culture Urgent
ERNESTO Source: Blood/Venous
Specimen Description:
Influenza A+B Rapid Molecular Urgent
ERNESTO Source: Nasal Swab
Specimen Description:
02/20/24 02:43
COVID-19 Antigen Urgent
Source: Nasal Swab
Abnormal Lab Results
02/20/24 02/20/24
00:58 01:43
RBC 4.04 L 10^6/uL
(4.70-6.10)
Hgb 12.5 L g/dL
(13.0-18.0)
Hct 34.9 L %
(39.0-52.0)
Absolute Neuts (auto) 7.0 H 10^3/uL
(1.4-6.5)
Absolute Monos (auto) 0.8 H 10^3/uL
(0.1-0.6)
Lymphocytes % 19.2 L %
(20.5-51.1)
Chloride 110 H mmol/L
(98-107)
BUN 25 H mg/dl
(9-20)
Glucose 100 H mg/dl
(70-99)
Lactic Acid < 0.5 L mmol/L
(0.7-2.0)
Urine Ketones 1+ A
(Negative)
Ur Occult Blood Reflex 4+ A
(Negative)
Leukocyte Esterase Rfl 2+ A
(Negative)
Urine RBC >100 A /HPF
(0-2)
Urine Albumin (Reflex) 3+ A
(Neg - Trace)
02/20/24 01:43
02/20/24 01:43
Vital Signs
Initial and Last Documented VS:
Initial Vital Signs
Temp Pulse Resp BP Pulse Ox
98.1 F 97 19 177/119 97
02/20/24 00:50 02/20/24 00:50 02/20/24 00:50 02/20/24 00:50 02/20/24 00:50
Last Documented Vital Signs
Temp Pulse Resp BP Pulse Ox
98.1 F 63 15 108/94 94
02/20/24 00:50 02/20/24 06:15 02/20/24 06:15 02/20/24 06:01 02/20/24 06:15
<Willie Schrader [facility] - Last Filed: 02/20/24 03:03>
MDM/Problems Addressed
Differential Diagnosis Includes:
Differential diagnosis includes but is not limited to urosepsis, stent blockage, electrolyte abnormalities
<ST BipinSC - Last Filed: 02/20/24 03:03>
*Pulse Oximetry
Patient hypoxic: no
*EKG
Interpreted by ED Provider?: Yes
EKG Intrepretation Date: 02/20/24
Interpretation: abnormal
Comparison EKG: no changes
Heart Rate: 73
Rate: normal
Rhythm: sinus
[place]: normal axis
Interval: normal interval
QRS Pattern: right bundle branch block and left vent hypertrophy
Ischemia: no ischemia
*Silviculturist Interpretation
Rate: Silviculturist- N/A
*Critical Care Note
Total Time (30-74mins, 75-104mins- exclusive of procedures): Not Applicable
ED Attending Note
<Varsha Damon MD - Last Filed: 02/20/24 06:50>
ED Attending Note
Patient seen and examined by attending physician: Yes
I performed the substantive portion of visit, reviewed & personally made and approve the management plan that is documented in note by myself or BEVERLY.: Yes
ED Attending Note:
This patient is a 44-year-old male paraplegic who presents emergency department with reported change in mental status. Patient has a complex prior medical history including recent kidney stones causing obstruction requiring right kidney stent on
. He states that his left kidney is 'closed up', and urology was unable to place a stent and he is due for further testing on that left side. He has a Damon catheter in place, and the output has been blood-tinged but became [place] colored
this evening. He denies fever, chills, nausea, vomiting, chest pain. He ate dinner as usual. It is unclear if he is having more of his usual abdominal cramping. He says he feels like he is 'drunk', and he does not drink. His family who is
bedside confirms that he is not acting his usual self. He says he feels a little sleepy. On exam, patient awake alert making jokes with staff, provides a thorough history identifies family members at bedside, oriented x 3. Speech is clear,
cranial nerves II through XII intact, upper extremity motor strength intact. Damon catheter noted in place without blood or drainage around catheter. Baclofen pump palpated on abdominal exam. Lungs CTA. Patient presents to the Emergency
Department with ___worsening hematuria and mental status change
Number and Complexity of Problems Addressed at the Encounter
� Chronic conditions affecting care:
� Acute Exacerbation and/or Progression of Chronic Illness:
� Differential Diagnosis includes: But not limited to infections/urosepsis, kidney failure, stent blockage, electrolyte disorder, etc.
Amount and/or Complexity of Data to be Reviewed and Analyzed
� I performed an independent evaluation of and my interpretation is:
EKG:
CT:VISION...stent in proper place,
Xrays:
Laboratory Studies:nl wbc, mild anemia. Urine obscured by wbc, however nitrite neg
Other:
� Review of other/old records reveals: sepsis, uti in november/December
� Clinical information was obtained by an independent historian: Sister and [id number] who are at bedside
� Prescriptions/Medications Considered but not given:
� Further testing considered but not performed:
Risk of Complications and/or Morbidity or Mortality of Patient Management
� Social determinants of health affecting care:
� Discussion with other providers (PCP, Hospitalists, Consultants, etc):
� Escalation of care including admission/observation vs risk of discharge considered:Multiple reassessments, pt has slept here, now awake, in nad, remains oriented and not confused. I do not appreciate any findings now or upon
his initila presentation to raise concern for mental status change. No fever, no wbc elevation. Pt noted to have gross hematuria, however Damon draining. He reiterates that he does not feel similar sxs to infx in past. Multiple calls to [facility]
urologist without return.
Case d/w uro from [facility] (dr siddiqui), aware of hx, phys, vitals, urine, labs, hematuria, etc....states that hematuria with stent in place very expected, given bladder scan 0, assured no retention, no recommendation for cbi. does not clinically
worry re:infx given bactrim pt rx'd and lab/urine findings here. Pt and sister Elsa reassured and agreeable to plan for d/c with f/u.
<NATE Voss - Last Filed: 02/20/24 03:03>
-
Portions of this chart may have been created with voice recognition software.� Occasional wrong word or��sound alike� substitutions may have occurred due to the inherent limitations of voice recognition software.
Discharge Plan
Departure
Patient Disposition: Home (Routine Discharge)
Date of Disposition: 02/20/24
Time of Disposition: 06:46
Patient with high blood pressure during this ER visit?: Yes
Condition: Good
Discharge Problem:
Hematuria
Instructions: Blood in Urine (Hematuria), Adult ED, BLOOD PRESSURE
Prescriptions:
No Action
cyclobenzaprine 10 mg tablet
10 mg PO TID
sennosides [Senna Laxative] 8.6 mg tablet
17.2 mg PO NOON
midodrine 5 mg tablet
15 mg PO NOON
melatonin 3 mg tablet
6 mg PO HS
baclofen 20 mg tablet
20 mg PO QID
bisacodyl 10 mg Suppository
10 mg SC DAILY
lidocaine 5 % Adhesive Patch,Medicated
1 patch TOPICAL DAILY PRN (Reason: topical pain)
docusate sodium 100 mg capsule
100 mg PO BID
Patient's Own Baclofen Pump
1 dose continuous intrathecal infusion .CONTINUOUS
Patient Comments:
12/22/23
Dr Rocio Ro [facility] [phone]
next appt 01/25/24; pump refill 03/08/24
Nitropaste
1 inch topical PRN PRN (Reason: 'high BP'/'low heart rate')
Patient Comments:
Pt states 'when I go into AD with my BP high and heart rate low. I put one inch of nitropaste on my forehead when I go into AD then when my BP comes down, I wipe it off.'
pantoprazole [Protonix] [address] for susp in packet
40 mg PO BID Qty: 60 0RF
topiramate 25 mg tablet
12.5 mg PO BID Qty: 0 0RF
acetaminophen 325 mg Tablet
650 mg PO Q4HPRN PRN (Reason: mild pain/ fever>100.5F) Qty: 0 0RF
Referrals:
Tequila García MD [Family Provider] -
Activity Restrictions/Additional Instructions:
PLEASE FOLLOW UP WITH YOUR UROLOGIST (KIDNEY STONE DOCTOR) THIS WEEK. IF YOU DEVELOP CHILLS, SWEATS, VOMITING, THE CATHETER DOES NOT DRAIN, OR OTHER WORRISOME SIGNS, GO TO THE ER IMMEDIATELY!
Interventions
Interventions:
*Risk Screen - Suicide Last Done: 02/20/24 00:50
*General Assessment Last Done: 02/20/24 00:50
*Neglect/Abuse Screening Last Done: 02/20/24 00:50
ED- Fall Risk Assessment Last Done: 02/20/24 01:53
*ED COVID-19 Vaccine History Last Done: 02/20/24 00:50
ED-Male Genitourinary Assessment Last Done: 02/20/24 00:55
Discharge Date and Time
Print Language: SYRIAC
[2024-02-20 01:18] LABS: Urine Albumin 3+ (Neg - Trace); Urine Bilirubin Negative (Negative); Urine Color Red; Urine Glucose Negative (Negative); Urine Ketone 1+ (Negative); Urine Leukocyte 2+ (Negative); Urine Nitrite Negative (Negative); Urine Occult Blood 4+ (Negative); Urine Specific Gravity 1.015 (<1.030); Urine Urobilinogen Negative (Neg - 1+)
[2024-02-20 01:19] LABS: Urine Character Very Cloudy (Clear)
[2024-02-20 01:33] LABS: Urine Amorphous Seen; Urine Red Blood Cell >100 /HPF (0-2); Urine Squamous Cell SEEN /LPF (Few)
[2024-02-20 01:52] LABS: % Basophils 0.7 % (0-2); % Eosinophils 2.8 % (0-6); % Immature Granulocytes 0.2 % (0-0.5); % Lymphocytes 19.2 % (20.5-51.1); % Monocytes 7.7 % (1.7-9.3); % Neutrophils 69.4 % (42.2-75.2); Absolute Basophils 0.1 10^3/uL (0-0.2); Absolute Eosinophils 0.3 10^3/uL (0-0.7); Absolute Lymphocytes 1.9 10^3/uL (1.2-3.4); Absolute Monocytes 0.8 10^3/uL (0.1-0.6); Hematocrit 34.9 % (39.0-52.0); Hemoglobin 12.5 g/dL (13.0-18.0); Mean Corp Hgb Conc. 35.8 g/dL (33.0-37.0); Mean Corpuscular Hgb 30.9 pg (27.0-31.0); Mean Corpuscular Volume 86.4 fL (80.0-94.0); Mean Platelet Volume 9.8 fL (7.4-10.4); Nucleated Red Blood Cells % 0 % (-); Platelet Count 218 10^3/uL (130-400); Red Blood Cell Count 4.04 10^6/uL (4.70-6.10); Red Cell Dist. Width 13.1 % (11.5-14.5); White Blood Cell Count 10.1 10^3/uL (4.8-10.8)
[2024-02-20 02:07] LABS: Lactic Acid < 0.5 mmol/L (0.7-2.0)
[2024-02-20 02:12] LABS: ALT (SGPT) 17 U/L (0-50); AST (SGOT) 30 U/L (17-59); Albumin 4.1 g/dl (3.5-5.0); Alkaline Phosphatase 68 U/L (38-126); Blood Urea Nitrogen 25 mg/dl (9-20); Calcium 9.6 mg/dl (8.4-10.2); Carbon Dioxide 22 mmol/L (22-30); Chloride 110 mmol/L (98-107); Estimated Creatinine Clearance 98 ml/min; Glucose 100 mg/dl (70-99); Potassium 3.7 mmol/L (3.5-5.1); Sodium 139 mmol/L (135-145); Total Bilirubin 0.5 mg/dl (0.2-1.3); Total Protein 6.5 g/dl (6.3-8.2); eGFR > 60.00
[2024-02-20 02:20] LABS: Troponin I < 0.012 ng/ml
[2024-02-20 03:04] LABS: COVID-19 Antigen Negative (Negative)
== END 2024-02-20 07:45 | disposition home or self-care (01) ==
LOC: EMR 00:49
PROVIDERS: EMERGENCY PHYSICIAN Emergency Medicine; FAMILY PHYSICIAN Internal Medicine
DX: R41.82 Altered mental status, unspecified (principal); R10.9 Unspecified abdominal pain; R31.0 Gross hematuria; Z11.52 Encounter for screening for COVID-19; R03.0 Elevated blood-pressure reading, without diagnosis of hypertension; N13.2 Hydronephrosis with renal and ureteral calculous obstruction; D64.9 Anemia, unspecified; G82.20 Paraplegia, unspecified; I45.19 Other right bundle-branch block; Z98.890 Other specified postprocedural states
CPT/HCPCS: 99284; 94760; 74176; 80053; 81003; 81015; 83605; 84484; 85025; 87040; 87086; 87502; 87811; 93005

== ENCOUNTER 2024-03-29 04:12 | Inpatient (IN) | payer OTHER, SELFPAY ==
[2024-03-28 23:46] VITALS: BP 98/67
[2024-03-29] VITALS (17 sets, daily range): BP systolic 95–161; BP diastolic 58–132; BMI 23.6; BMI 22.8
--- NOTE | 2024-03-29 00:06 | ED.GENMED ---
History of Present Illness
General
Chief Complaint: Catheter/Tube Problem
Source: patient
Exam Limitations: none
Time Seen by Provider: 03/28/24 23:41
History of Present Illness
History of Present Illness:
This is a 44 year old male that is brought in by ambulance with c/o fever. States that he started at 4am today with a fever and discharge around the catheter. States that this is a mucous like discharge. State that one minute he is freezing and then
the next he is sweating. State that he had abd pain with nausea and vomiting. State he had chills with the fever and a headache. States that the just tried to take Tylenol but he vomiting this back up.Denies any chest pain, SOB, diarrhea, dizziness.
Past History
Past History
ED Past Medical History: HTN and Other (paraplegic, Migraines, Pseudoaneurysm, Autonomic dysreflexia, Constipation, UTI, Indwelling catheter, )
ED Past Surgical History: Orthopedic (Cervical spine, Thoracic spine , Bilateral hand surgery, Ankle surgery, Bicep tendon repair), Urological (Bladder surgery, Right kidney stent, ) and Other (Aortic stent, Baclofen pump placed abd)
Social History
Tobacco: Vaping (Former smoker and occasionally vaps)
Alcohol: None
Personal: Single
Living: with family
Review of Systems
Review of Systems
All Other Systems: ROS reviewed and negative except as documented in HPI and ROS
Constitutional: Reports fever, chills and other (Sweats)
EENT: Reports no symptoms
Respiratory: Reports no symptoms; Denies cough or trouble breathing
Cardiac: Reports no symptoms; Denies chest pain
ABD/GI: Reports abdominal pain, nausea and vomiting; Denies diarrhea
: Reports other (Indwelling catheter with mucous like drainage around catheter)
Musculoskeletal: Reports other (Paraplegic)
Skin: Reports no symptoms
Neurological: Reports headache; Denies dizzy
Psychiatric: Reports no symptoms
Phy Exam
General Physical Exam
General Presentation: no apparent distress
General age: appears stated age
General Skin: cool and other (Clammy)
General Habitus: normal
General Mental: alert
General Hydration: appears well hydrated
ENT Exam
ENT Exam: TM's normal, pharynx normal and neck supple
Eye Exam
Eye Exam: EOMI
Cardiovascular Exam
Cardiovascular Exam: regular rate/rhythm, no edema and normal peripheral pulses
Pulmonary Exam
Pulmonary Exam: lungs clear, no respiratory distress, no rales, chest non tender, no crackles, no rhonchi, no wheezing and no cough
Gastrointestinal Exam
Gastrointestinal Exam: normal bowel sounds, non tender, soft, no organomegaly, no pulsatile mass, non distended and other (Baclofen pump palpable right mid abd. )
Musculoskeletal Exam
Musculoskeletal Exam: no edema and other (Paraplegia)
Skin Exam
Skin Exam: normal color, no rash, no petechia and other (Cool and clammy)
Psychiatric Exam
Psychiatric Exam: normal mood/affect
Course
Orders/Labs/Results
Orders:
Orders
03/29/24 00:06
Complete Blood Count/With Diff Urgent
Comprehensive Metabolic Panel Urgent
Lactate Level [Lactic Acid] Urgent
Ibuprofen [Motrin] 600 mg PO NOW STA
03/29/24 00:07
0.9% Sodium Chloride 1000 ml [Nss] 1,000 ml IV BOLUS
03/29/24 00:10
Ondansetron Injectable [Zofran] 4 mg IV NOW STA
03/29/24 00:31
COVID-19 Antigen Urgent
Source: Nasal Swab
Urinalysis Reflex To Culture Urgent
Date Specimen was Collected: 03/29/24
Time Specimen was Collected: 00:09
Urine Microscopic Reflex Cult Urgent
Blood Culture Urgent
ERNESTO Source: Blood/Venous
Specimen Description:
Blood Culture Urgent
ERNESTO Source: Blood/Venous
Specimen Description:
Comment: PLEASE DO 2 SETS
Urine Culture Urgent
ERNESTO Source: U
Specimen Description:
Date Specimen was Collected: 03/29/24
Time Specimen was Collected: 00:09
03/29/24 01:40
CefTRIAXone [Rocephin] 1,000 mg IV NOW STA
Abnormal Lab Results
03/29/24 03/29/24
00:06 00:31
WBC 11.3 H 10^3/uL
(4.8-10.8)
RBC 4.02 L 10^6/uL
(4.70-6.10)
Hgb 12.5 L g/dL
(13.0-18.0)
Hct 34.5 L %
(39.0-52.0)
MCH 31.1 H pg
(27.0-31.0)
Abs Immat Gran (auto) 0.1 H 10^3/uL
(0-0.05)
Absolute Neuts (auto) 9.4 H 10^3/uL
(1.4-6.5)
Absolute Lymphs (auto) 0.7 L 10^3/uL
(1.2-3.4)
Absolute Monos (auto) 1.1 H 10^3/uL
(0.1-0.6)
Neutrophils % 83.4 H %
(42.2-75.2)
Lymphocytes % 6.0 L %
(20.5-51.1)
Monocytes % 9.4 H %
(1.7-9.3)
Carbon Dioxide 17 L mmol/L
(22-30)
BUN 21 H mg/dl
(9-20)
Glucose 109 H mg/dl
(70-99)
Urine Ketones 3+ A
(Negative)
Ur Occult Blood Reflex 4+ A
(Negative)
Urine Nitrite (Reflex) Positive A
(Negative)
Urine Bilirubin 1+ A
(Negative)
Leukocyte Esterase Rfl 2+ A
(Negative)
Urine RBC 70-80 A /HPF
(0-2)
Urine WBC (Reflex) 11-15 A /HPF
(0-5)
Urine Bacteria (Reflex) Few A
(Negative)
Urine Albumin (Reflex) 3+ A
(Neg - Trace)
03/29/24 00:06
03/29/24 00:06
Leukocytosis. H/H slightly low. Dehydration. Glucose nonfasting. Urine positive for infection. Lactic acid normal at 0.8
Vital Signs
Initial and Last Documented VS:
Initial Vital Signs
Temp Pulse Resp BP Pulse Ox
102.0 F H 113 18 98/67 95
03/28/24 23:46 03/28/24 23:46 03/28/24 23:46 03/28/24 23:46 03/28/24 23:46
Last Documented Vital Signs
Temp Pulse Resp BP Pulse Ox
103.2 F H 85 20 95/58 96
03/29/24 00:00 03/29/24 01:26 03/29/24 01:26 03/29/24 01:00 03/28/24 23:53
MDM/Problems Addressed
Differential Diagnosis Includes:
UTI, COVID
MDM/Problems Addressed:
This is a 89 year old paraplegic male patient that is brought in by ambulance with c/o fever, nausea, vomiting. States that he started with a fever at 4am and the has been freezing and then sweating. States that he took Tylenol and it would come
down some but then go right up. States that he is nauseated and vomiting.
Will get labs, Urine, Unable to change catheter as there is a stitch that is along the catheter that is most likely connected to a stent.
Back into see patient. Explained that he has a Urinary tract infection. With patient fever and history will admit. Will start IV antibiotics. Hospitalist notified.
Chronic conditions affecting care:
Paraplegic, Chronic indwelling catheter,
Acute Exacerbation and/or Progression of Chronic Illness:
INdwelling catheter. Paraplegic
*Pulse Oximetry
Patient hypoxic: no
*EKG
Interpreted by ED Provider?: NA
Rate: EKG- N/A
*Gear Design Engineer Interpretation
Rate: normal
Heart Rate: 64
Rhythm: sinus
*Critical Care Note
Total Time (30-74mins, 75-104mins- exclusive of procedures): Not Applicable
ED Attending Note
-
Portions of this chart may have been created with voice recognition software.� Occasional wrong word or��sound alike� substitutions may have occurred due to the inherent limitations of voice recognition software.
Discharge Plan
Departure
Patient Disposition: Admit
Date of Disposition: 03/29/24
Time of Disposition: 01:46
Admit to: Med/Surg
Presentation/result/management discussed w/ accepting MD/DO: Hospitalist
Patient with high blood pressure during this ER visit?: No
Condition: Good
Covid-19: Not Applicable
Discharge Problem:
Urinary tract infection, Fever
Prescriptions:
No Action
cyclobenzaprine 10 mg tablet
10 mg PO TID
Patient Comments:
pt states no longer taking due to pharmaceutical issues
sennosides [Senna Laxative] 8.6 mg tablet
17.2 mg PO NOON
midodrine 5 mg tablet
15 mg PO NOON
melatonin 3 mg tablet
6 mg PO HS
baclofen 20 mg tablet
20 mg PO QID
bisacodyl 10 mg Suppository
10 mg NM DAILY
lidocaine 5 % Adhesive Patch,Medicated
1 patch TOPICAL DAILY PRN (Reason: topical pain)
docusate sodium 100 mg capsule
100 mg PO BID
Patient's Own Baclofen Pump
1 dose continuous intrathecal infusion .CONTINUOUS
Patient Comments:
12/22/23
Dr Rocio Ro [facility] [phone]
next appt 01/25/24; pump refill 03/08/24
Nitropaste
1 inch topical PRN PRN (Reason: 'high BP'/'low heart rate')
Patient Comments:
Pt states 'when I go into AD with my BP high and heart rate low. I put one inch of nitropaste on my forehead when I go into AD then when my BP comes down, I wipe it off.'
pantoprazole [Protonix] [address] for susp in packet
40 mg PO BID Qty: 60 0RF
topiramate 25 mg tablet
12.5 mg PO BID Qty: 0 0RF
acetaminophen 325 mg Tablet
650 mg PO Q4HPRN PRN (Reason: mild pain/ fever>100.5F) Qty: 0 0RF
polyethylene glycol 3350 [Miralax] 17 gram Powder In Packet
17 g PO DAILY PRN (Reason: constipation )
Patient Comments:
PRN if stool softners do not work
Referrals:
UNKNOWN - PT DOES,NOT KNOW [Family Provider] -
Interventions
Interventions:
*Risk Screen - Suicide Last Done: 03/28/24 23:46
*General Assessment Last Done: 03/28/24 23:46
*Neglect/Abuse Screening Last Done: 03/28/24 23:46
ED- Fall Risk Assessment Last Done: 03/28/24 23:53
*ED COVID-19 Vaccine History Last Done: 03/28/24 23:46
XI-[id number]-[id number] Assessment Last Done: 03/28/24 23:53
ED-Male Genitourinary Assessment Last Done: 03/28/24 23:53
Discharge Date and Time
Print Language: WELSH
[2024-03-29 00:16] LABS: % Basophils 0.4 % (0-2); % Eosinophils 0.4 % (0-6); % Immature Granulocytes 0.4 % (0-0.5); % Monocytes 9.4 % (1.7-9.3); % Neutrophils 83.4 % (42.2-75.2); Absolute Basophils 0.1 10^3/uL (0-0.2); Absolute Immature Granulocytes 0.1 10^3/uL (0-0.05); Absolute Lymphocytes 0.7 10^3/uL (1.2-3.4); Absolute Monocytes 1.1 10^3/uL (0.1-0.6); Absolute Neutrophils 9.4 10^3/uL (1.4-6.5); Hematocrit 34.5 % (39.0-52.0); Hemoglobin 12.5 g/dL (13.0-18.0); Mean Corp Hgb Conc. 36.2 g/dL (33.0-37.0); Mean Corpuscular Hgb 31.1 pg (27.0-31.0); Mean Corpuscular Volume 85.8 fL (80.0-94.0); Mean Platelet Volume 9.6 fL (7.4-10.4); Nucleated Red Blood Cells % 0 % (-); Platelet Count 247 10^3/uL (130-400); Red Blood Cell Count 4.02 10^6/uL (4.70-6.10); Red Cell Dist. Width 12.6 % (11.5-14.5); White Blood Cell Count 11.3 10^3/uL (4.8-10.8)
[2024-03-29] MEDS: NSS 1000 IV ×5 (00:17→20:46)
[2024-03-29] MEDS: ZOFRAN 4 MG IV (00:18)
[2024-03-29 00:28] LABS: Lactic Acid 0.8 mmol/L (0.7-2.0)
[2024-03-29 00:34] LABS: ALT (SGPT) 13 U/L (0-50); AST (SGOT) 21 U/L (17-59); Albumin 4.2 g/dl (3.5-5.0); Alkaline Phosphatase 81 U/L (38-126); Blood Urea Nitrogen 21 mg/dl (9-20); Calcium 9.4 mg/dl (8.4-10.2); Carbon Dioxide 17 mmol/L (22-30); Chloride 104 mmol/L (98-107); Glucose 109 mg/dl (70-99); Potassium 3.7 mmol/L (3.5-5.1); Sodium 138 mmol/L (135-145); Total Bilirubin 0.9 mg/dl (0.2-1.3); Total Protein 6.9 g/dl (6.3-8.2); eGFR > 60.00
[2024-03-29] MEDS: MOTRIN 600 MG PO (00:44)
[2024-03-29 00:55] LABS: COVID-19 Antigen Negative (Negative)
[2024-03-29 01:22] LABS: Urine Albumin 3+ (Neg - Trace); Urine Bilirubin 1+ (Negative); Urine Character Slightly Cloudy (Clear); Urine Color Amber; Urine Glucose Negative (Negative); Urine Ketone 3+ (Negative); Urine Leukocyte 2+ (Negative); Urine Nitrite Positive (Negative); Urine Occult Blood 4+ (Negative); Urine Urobilinogen 1+ (Neg - 1+); Urine pH 6.5 (5.0-9.0)
[2024-03-29 01:30] LABS: Urine Squamous Cell 0-2 /LPF (Few)
[2024-03-29 01:31] LABS: Urine Bacteria Few (Negative); Urine Red Blood Cell 70-80 /HPF (0-2)
[2024-03-29] MEDS: ROCEPHIN 1000 MG IV (01:51)
--- NOTE | 2024-03-29 03:09 | HPS.HSE ---
Family Physician
-
Family Physician: NOT KNOW UNKNOWN - PT DOES
Chief Complaint
-
Fever
History of Present Illness
This is a 44-year-old male paraplegia with urinary retention currently with chronic indwelling urinary catheter coming to the emergency department with a 1 day of fevers.
Patient reports awakening in the morning with fever chills and rigors. He reports myalgias. He denies any respiratory symptoms including cough or shortness of breath. He denies any sore throat, runny nose, neck pain or stiffness. He denies any
headache. He denies any nausea or vomiting. Patient currently has a chronic indwelling urinary catheter. He has a history of recurrent UTIs. He is status post right kidney stenting and stone removal. He had a CT urogram yesterday which showed
obstruction of the left kidney and the stent patent stent in the right kidney. He was feeling well before and after the study until when he arose in the morning with a fever.
Patient reported that he did use antibiotics 1 week ago for symptoms concerning for urinary tract infection. Does not know the name of the antibiotics. States has been on antibiotics ever since he had the urology for procedure off and on since
January.
In the ED the patient was febrile to 103 �F, his blood pressure was 98/67. Oxygen saturation was 96% on room air. COVID test was negative. WBC was 11,000 CBC otherwise unremarkable. Chemistries were unremarkable. His UA was positive with
positive nitrite leukocyte esterase pyuria, hematuria and bacteriuria.
Medical History
Past Medical History
Past Medical History: Reports Other (Recurrent UTI )
Additional Past Medical History:
nephrolithiasis s/p stenting
paraplegia
Past Surgical History: Reports None
Social History
Tobacco: Non-smoker
Alcohol: None
Drug: None
Personal: Single
Living: Alone
Employment: Disabled
Family History
Family History: Not pertinent
Allergies / Home Medications
Allergies reflects when Allergies were last updated in [employer].
Home Medications with original date entered in [employer]
Allergy/Medication List:
Allergies
Allergy/AdvReac Type Severity Reaction Status Date / Time
No Known Allergies Allergy Verified 03/29/24 00:41
Home Medications
Patient's Own Baclofen Pump 1 dose continuous intrathecal infusion .CONTINUOUS Pain 12/14/23
baclofen 20 mg tablet 20 mg PO QID Muscle pain 12/14/23
bisacodyl 10 mg rectal suppository 10 mg [place] DAILY Constipation 12/14/23
cyclobenzaprine 10 mg tablet 10 mg PO TID Muscle pain 12/14/23
docusate sodium 100 mg capsule 100 mg PO BID Constipation 12/14/23
lidocaine 5 % topical patch 1 patch topical DAILY PRN topical pain 12/14/23
melatonin 3 mg tablet 6 mg PO HS Sleep 12/14/23
midodrine 5 mg tablet 15 mg PO NOON Blood Pressure 12/14/23
sennosides 8.6 mg tablet (Senna Laxative) 17.2 mg PO NOON Constipation 12/14/23
Nitropaste 1 inch topical PRN PRN 'high BP'/'low heart rate' 12/15/23
pantoprazole 40 mg granules delayed-release for susp in packet (Protonix) 40 mg PO BID #60 ea 12/19/23
acetaminophen 325 mg tablet 650 mg (2 x 325 mg) PO Q4HPRN PRN mild pain/ fever>100.5F #0 tabs 12/26/23
topiramate 25 mg tablet 12.5 mg (1/2 x 25 mg) PO BID Neurological Condition #0 tabs 12/26/23
polyethylene glycol 3350 17 gram oral powder packet (Miralax) 17 g PO DAILY PRN constipation 03/29/24
Review of Systems
-
Constitutional: Reports Fever
EENT: Reports No Symptoms
Respiratory: Reports No Symptoms
Cardiac: Reports No Symptoms
Abdomen/GI: Reports No Symptoms
: Reports No Symptoms
Musculoskeletal: Reports No Symptoms
Skin: Reports No Symptoms
Neurological: Reports No Symptoms
Endocrine: Reports No Symptoms
Hematologic/Lymphatic: Reports No Symptoms
Psych: Reports No Symptoms
Physical Exam
Vital Signs
Vital Signs
Temp Pulse Resp BP Pulse Ox
100.4 F H 83 22 108/76 98
03/29/24 02:02 03/29/24 03:00 03/29/24 03:00 03/29/24 03:00 03/29/24 03:00
Physical Exam
General: Comfortable
HEENT: NormoCephalic, Anicteric, Moist mucous membranes and Atraumatic
Respiratory: Clear
Cardiac: S1/S2 and Regular Rhythm
Breast: Deferred by me
GI: Soft, Non Distended and Normal Bowel Sounds
Rectal: Deferred by Provider
Genito-urinary: Turbid Urine and Damon
Musculoskeletal: No Clubbing, No Cyanosis and No Edema
Skin: Warm
Neuro: AO x 3 and Other (paraplegia)
Hematologic/Lymphatic: No Lymphadenopathy
Psych: Calm
Laboratory Results
-
03/29/24 00:06
03/29/24 00:06
Laboratory Results
Lactic Acid 0.8 mmol/L (0.7-2.0) 03/29/24 00:06
Total Bilirubin 0.9 mg/dl (0.2-1.3) 03/29/24 00:06
AST 21 U/L (17-59) 03/29/24 00:06
ALT 13 U/L (0-50) 03/29/24 00:06
Alkaline Phosphatase 81 U/L (38-126) 03/29/24 00:06
Data Reviewed
-
Medical Tests (Nuc Med, Echo, EKG etc): Report Reviewed by me
Lab Data: Labs Reviewed by me
Old Records: Reviewed
Impression/Plan
-
IMPRESSION:
PLAN:
Sepsis - Complicated UTI w/ sepsis. He is paraplegic with current indwelling damon catheter. Has h/o nephrolithiasis s/p stenting of right kidneys. No evidence of shock. Reports outpatient CT urogram with ? of left ureteral obstruction.
- admit to med/surg
- blood cultures and urine cultures sent
- given h/o ESBL, will start ertapenem
- ID consultation
- CT abd/pelvis
- laxative regimen
DVT PPX - lovenox sq
Full Code
[2024-03-29] MEDS: INVANZ 60 MG IV (04:48)
[2024-03-29 06:13] LABS: Hematocrit 31.8 % (39.0-52.0); Hemoglobin 11.3 g/dL (13.0-18.0); Mean Corp Hgb Conc. 35.5 g/dL (33.0-37.0); Mean Corpuscular Volume 87.4 fL (80.0-94.0); Mean Platelet Volume 9.7 fL (7.4-10.4); Platelet Count 217 10^3/uL (130-400); Red Blood Cell Count 3.64 10^6/uL (4.70-6.10); Red Cell Dist. Width 12.7 % (11.5-14.5); White Blood Cell Count 11.7 10^3/uL (4.8-10.8)
[2024-03-29 06:22] LABS: Blood Urea Nitrogen 22 mg/dl (9-20); Calcium 8.7 mg/dl (8.4-10.2); Carbon Dioxide 18 mmol/L (22-30); Chloride 107 mmol/L (98-107); Estimated Creatinine Clearance > 125 ml/min; Glucose 104 mg/dl (70-99); Potassium 3.8 mmol/L (3.5-5.1); Sodium 141 mmol/L (135-145); eGFR > 60.00
--- NOTE | 2024-03-29 06:40 | PTCARENOTE ---
pt arrived from ED via beeer, Karen, AAOx3, denies pain and SOB, drowsy but arousable, chronic damon, NSS at 100, robinson queen in reach, oriented to room.
--- NOTE | 2024-03-29 06:47 | PTCARENOTE ---
sacrum and b/l heels pink, foams applied.
[2024-03-29] MEDS: COLACE 100 MG PO ×2 (08:05→19:27)
[2024-03-29] MEDS: PREVACID 30 MG PO (08:05)
--- NOTE | 2024-03-29 08:23 | PTCARENOTE ---
Updated patients [employer] med list to correctly reflect current topamax dosage- 25mg PO daily.
[2024-03-29] MEDS: TYLENOL 650 MG PO ×4 (08:27→23:51)
[2024-03-29] MEDS: DULCOLAX 10 MG RECTAL (08:28)
--- NOTE | 2024-03-29 09:09 | PTCARENOTE ---
Made hospitalist MD aware of patient's morning complaints- extreme cold, all over back pain/discomfort, and shaking in bed/being restless. RN offered Tylenol for pain, pt stated that he didn't know if this pain was related to his kidneys but stated,
'when I get cold, I get back pain'.
RN reviewed morning medications and emergency contacts with patient; see flow sheets/MAR for updates and further info.
[2024-03-29] MEDS: NSS IV (10:28)
[2024-03-29] MEDS: SENOKOT 17.2 MG PO (11:17)
[2024-03-29] MEDS: ProAmatine 15 MG PO (11:17)
[2024-03-29] MEDS: TOPAMAX 25 MG PO (11:17)
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
--- NOTE | 2024-03-29 11:37 | PTCARENOTE ---
Patient resting comfortably in bed, vitals within normal limits, pt denies pain at this time. Hospitalist rounded on patient and urology consult put in, damon draining brown urine
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
--- NOTE | 2024-03-29 15:02 | PTCARENOTE ---
Patient sleeping most of shift, remains A&Ox3, no fever/chills, voiding via damon. Report called to [facility] for transfer. IVF continue per order
--- NOTE | 2024-03-29 15:55 | PTCARENOTE ---
Patient transferred from ICU. [facility] patent, secure. No needs at this time.
R FA/AC IV patent, NS infusing at 100 mL/hour.
[2024-03-29] MEDS: LOVENOX 40 MG SC (18:15)
[2024-03-29] MEDS: PROTONIX 40 MG PO (19:27)
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
[2024-03-29] MEDS: TORADOL 15 MG IV (21:46)
--- NOTE | 2024-03-29 23:05 | PTCARENOTE ---
Pt called and stated he had a severe headache and asked for BP to be checked at 2030. BP 160/100. Temp 100.6. Pt had received tylenol approx 1 hour prior. Stated that he takes nitropaste for elevated BP. Texted house [employer] and nitropaste ordered. BP
down when rechecked so nitropaste not given. Rechecked BP again at 2130 and was 147/91. Pt still with c/o severe headache. texted [employer] again and pt med with toradol as ordered. No relief at this time. Ice pack given. Pt states he doesn't want
narcotics. BP at current time is 106/60. Report given to oncoming nurse.
[2024-03-29] MEDS: MELATONIN 6 MG PO (23:50)
[2024-03-30] MEDS: TYLENOL 650 MG PO ×4 (04:01→18:07)
[2024-03-30] MEDS: NSS 1000 IV (04:02)
[2024-03-30] MEDS: INVANZ 60 MG IV (04:13)
[2024-03-30] MEDS: ZOFRAN 4 MG IV (05:14)
[2024-03-30 07:31] VITALS: BP 116/72
[2024-03-30] MEDS: SENOKOT-S 1 TABLET PO (09:40)
[2024-03-30] MEDS: TOPAMAX 25 MG PO (09:40)
[2024-03-30] MEDS: DULCOLAX 10 MG RECTAL (09:40)
[2024-03-30] MEDS: PROTONIX 40 MG PO ×2 (09:40→21:00)
[2024-03-30] MEDS: COLACE 100 MG PO ×2 (09:40→21:00)
--- NOTE | 2024-03-30 11:34 | CM ---
Patient seen at bedside, sleeping. Patient declined any concerns or needs for discharge at this time. Physical therapy indicated no therapy needs at this time. CM will continue to follow for discharge planning needs.
Plan; home with brother, watch for any VN needs.
[2024-03-30 11:46] LABS: % Basophils 0.4 % (0-2); % Eosinophils 3.2 % (0-6); % Immature Granulocytes 0.4 % (0-0.5); % Lymphocytes 17.2 % (20.5-51.1); % Monocytes 12.8 % (1.7-9.3); Absolute Eosinophils 0.3 10^3/uL (0-0.7); Absolute Lymphocytes 1.4 10^3/uL (1.2-3.4); Absolute Neutrophils 5.3 10^3/uL (1.4-6.5); Hematocrit 27.5 % (39.0-52.0); Hemoglobin 9.3 g/dL (13.0-18.0); Mean Corp Hgb Conc. 33.8 g/dL (33.0-37.0); Mean Corpuscular Volume 88.7 fL (80.0-94.0); Mean Platelet Volume 9.8 fL (7.4-10.4); Nucleated Red Blood Cells % 0 % (-); Platelet Count 214 10^3/uL (130-400)
[2024-03-30 12:02] LABS: Blood Urea Nitrogen 16 mg/dl (9-20); Calcium 8.6 mg/dl (8.4-10.2); Carbon Dioxide 20 mmol/L (22-30); Chloride 108 mmol/L (98-107); Estimated Creatinine Clearance > 125 ml/min; Glucose 84 mg/dl (70-99); Potassium 3.6 mmol/L (3.5-5.1); Sodium 140 mmol/L (135-145); eGFR > 60.00
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
[2024-03-30] MEDS: ProAmatine 5 MG PO (13:34)
[2024-03-30] MEDS: SENOKOT 17.2 MG PO (13:35)
[2024-03-30 15:27] VITALS: BP 141/84
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
[2024-03-30 16:31] LABS: Iron 21 ug/dl (49-181)
[2024-03-30 16:40] LABS: Percent Saturation 11 % (20-50); Total Iron Binding Capacity 176 ug/dl (261-462)
[2024-03-30] MEDS: MELATONIN 6 MG PO (21:01)
[2024-03-30 23:30] VITALS: BP 140/88
[2024-03-31] MEDS: TYLENOL 650 MG PO ×2 (02:56→11:20)
[2024-03-31] MEDS: INVANZ 60 MG IV (03:59)
[2024-03-31 07:55] VITALS: BP 119/71
[2024-03-31 08:28] LABS: % Basophils 0.4 % (0-2); % Eosinophils 3.9 % (0-6); % Immature Granulocytes 0.3 % (0-0.5); % Lymphocytes 22.8 % (20.5-51.1); % Monocytes 11.1 % (1.7-9.3); % Neutrophils 61.5 % (42.2-75.2); Absolute Eosinophils 0.3 10^3/uL (0-0.7); Absolute Lymphocytes 1.6 10^3/uL (1.2-3.4); Absolute Monocytes 0.8 10^3/uL (0.1-0.6); Absolute Neutrophils 4.4 10^3/uL (1.4-6.5); Hematocrit 28.8 % (39.0-52.0); Hemoglobin 9.8 g/dL (13.0-18.0); Mean Corpuscular Hgb 29.9 pg (27.0-31.0); Mean Corpuscular Volume 87.8 fL (80.0-94.0); Mean Platelet Volume 9.6 fL (7.4-10.4); Nucleated Red Blood Cells % 0 % (-); Platelet Count 237 10^3/uL (130-400); Red Blood Cell Count 3.28 10^6/uL (4.70-6.10); Red Cell Dist. Width 12.7 % (11.5-14.5); White Blood Cell Count 7.2 10^3/uL (4.8-10.8)
[2024-03-31] MEDS: COLACE 100 MG PO ×2 (08:58→19:58)
[2024-03-31] MEDS: PROTONIX 40 MG PO ×2 (08:58→19:58)
[2024-03-31] MEDS: TOPAMAX 25 MG PO (08:58)
[2024-03-31 09:43] LABS: Blood Urea Nitrogen 15 mg/dl (9-20); Calcium 8.9 mg/dl (8.4-10.2); Carbon Dioxide 20 mmol/L (22-30); Chloride 107 mmol/L (98-107); Estimated Creatinine Clearance > 125 ml/min; Glucose 82 mg/dl (70-99); Potassium 3.5 mmol/L (3.5-5.1); Sodium 141 mmol/L (135-145); eGFR > 60.00
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
[2024-03-31] MEDS: SENOKOT 17.2 MG PO (11:20)
[2024-03-31] MEDS: DULCOLAX 10 MG RECTAL (11:20)
[2024-03-31] MEDS: ProAmatine PO (11:21)
[2024-03-31] MEDS: MAGNESIUM SULFATE 100 IV (14:02)
[2024-03-31 15:00] VITALS: BP 140/89
[2024-03-31] MEDS: FERRLECIT 110 MG IV (15:51)
[2024-03-31] MEDS: MELATONIN 6 MG PO (21:02)
[2024-03-31 23:48] VITALS: BP 134/88
[2024-04-01] MEDS: INVANZ 60 MG IV (05:23)
[2024-04-01 08:00] VITALS: BP 129/84
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
[2024-04-01] MEDS: DULCOLAX 10 MG RECTAL (10:17)
[2024-04-01] MEDS: TOPAMAX 25 MG PO (10:17)
[2024-04-01] MEDS: PROTONIX 40 MG PO ×2 (10:17→20:37)
[2024-04-01] MEDS: COLACE 100 MG PO ×2 (10:17→20:37)
[2024-04-01] MEDS: ProAmatine 5 MG PO (13:13)
[2024-04-01] MEDS: FERRLECIT 110 MG IV (13:13)
[2024-04-01] MEDS: SENOKOT 17.2 MG PO (13:13)
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
[2024-04-01 16:00] VITALS: BP 154/92
[2024-04-01] MEDS: MELATONIN 6 MG PO (23:00)
[2024-04-01 23:22] VITALS: BP 133/85
[2024-04-02] MEDS: INVANZ 60 MG IV (04:55)
[2024-04-02 06:20] LABS: Hematocrit 30.2 % (39.0-52.0); Hemoglobin 10.7 g/dL (13.0-18.0); Mean Corp Hgb Conc. 35.4 g/dL (33.0-37.0); Mean Corpuscular Hgb 30.2 pg (27.0-31.0); Mean Corpuscular Volume 85.3 fL (80.0-94.0); Mean Platelet Volume 8.9 fL (7.4-10.4); Platelet Count 290 10^3/uL (130-400); Red Blood Cell Count 3.54 10^6/uL (4.70-6.10); Red Cell Dist. Width 12.3 % (11.5-14.5); White Blood Cell Count 6.2 10^3/uL (4.8-10.8)
[2024-04-02 06:41] LABS: Blood Urea Nitrogen 13 mg/dl (9-20); Carbon Dioxide 26 mmol/L (22-30); Chloride 105 mmol/L (98-107); Estimated Creatinine Clearance > 125 ml/min; Glucose 96 mg/dl (70-99); Potassium 3.7 mmol/L (3.5-5.1); Sodium 142 mmol/L (135-145); eGFR > 60.00
[2024-04-02 07:44] VITALS: BP 120/68
[2024-04-02] MEDS: TOPAMAX 25 MG PO (08:42)
[2024-04-02] MEDS: COLACE 100 MG PO (08:43)
[2024-04-02] MEDS: PROTONIX 40 MG PO (08:43)
[2024-04-02] MEDS: DULCOLAX 10 MG RECTAL (08:43)
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
[2024-04-02] MEDS: ProAmatine PO (11:12)
[2024-04-02] MEDS: SENOKOT 17.2 MG PO (11:13)
--- NOTE | 2024-04-02 13:25 | W.DS.TRANS ---
DC Summary - [employer]
-
Discharge Instructions:
Discharge Diagnosis/Procedures Complicated UTI
Sepsis
Diet Regular
Instructions:
Stand-Alone Forms:
Changes to Home Medications: Yes
Discharge Medications:
DC Medications w/original date entered in [employer]
Patient's Own Baclofen Pump 1 dose continuous intrathecal infusion .CONTINUOUS Pain 12/14/23
baclofen 20 mg tablet 20 mg PO QID Muscle pain 12/14/23
bisacodyl 10 mg rectal suppository 10 mg OR DAILY Constipation 12/14/23
cyclobenzaprine 10 mg tablet 10 mg PO TID Muscle pain 12/14/23
docusate sodium 100 mg capsule 100 mg PO BID Constipation 12/14/23
lidocaine 5 % topical patch 1 patch topical DAILY PRN topical pain 12/14/23
melatonin 3 mg tablet 6 mg PO HSPRN PRN sleep 12/14/23
midodrine 5 mg tablet 5 mg PO NOON Blood Pressure 12/14/23
sennosides 8.6 mg tablet (Senna Laxative) 8.6 mg PO BID Constipation 12/14/23
pantoprazole 40 mg granules delayed-release for susp in packet (Protonix) 40 mg PO BID #60 ea 12/19/23
acetaminophen 325 mg tablet 650 mg (2 x 325 mg) PO Q4HPRN PRN mild pain/ fever>100.5F #0 tabs 12/26/23
gabapentin 300 mg capsule 300 mg PO HSPRN PRN pain 03/29/24
midodrine 5 mg tablet 5 mg PO BIDPRN PRN SBP <110 03/29/24
nitroglycerin 0.4 % (w/w) rectal ointment 1 inch PRN elevated BP 03/29/24
nitroglycerin 2 % transdermal ointment 1 inch transdermal BIDPRN PRN SBP > 170-200 03/29/24
polyethylene glycol 3350 17 gram oral powder packet (Miralax) 17 g PO DAILY PRN constipation 03/29/24
topiramate 25 mg tablet (Topamax) 25 mg PO DAILY headaches 03/29/24
amoxicillin 875 mg-potassium clavulanate 125 mg tablet 1 tab PO Q12 #16 tabs 04/02/24
Home Medication Changes
Antibiotics
Pending Results: No
[2024-04-02] MEDS: FERRLECIT 110 MG IV (13:27)
--- NOTE | 2024-04-02 14:47 | CM ---
CM reviewed chart and noted dc order
Bedside meeting with pt
No dc needs noted
He will call sister for ride home
Discharge Disposition- home, no needs- family transport
[2024-04-02 15:32] VITALS: BP 129/76
== END 2024-04-02 13:25 | disposition home or self-care (01) | DRG 698 ==
LOC: 3 WEST ACU 04:12
PROVIDERS: Clinical Nurse Specialist Family Health; Internal Medicine; Student in an Organized Health Care Education/Training Program; ADMITTING PHYSICIAN Internal Medicine; ATTENDING PHYSICIAN Internal Medicine; CONSULT PHYSICIAN Surgery; EMERGENCY PHYSICIAN Student in an Organized Health Care Education/Training Program; OTHER PHYSICIAN Internal Medicine Infectious Disease
DX: T83.518A Infection and inflammatory reaction due to other urinary catheter, initial encounter (principal); A41.9 Sepsis, unspecified organism; G82.20 Paraplegia, unspecified; N13.6 Pyonephrosis; Y73.8 Miscellaneous gastroenterology and urology devices associated with adverse incidents, not elsewhere classified; Z11.52 Encounter for screening for COVID-19
CPT/HCPCS: 74176; 80048; 80053; 81003; 81015; 82728; 83540; 83550; 83605; 85025; 85027; 87040; 87070; 87077; 87086; 87186; 87811; 96361; 96365; 96375; 99284; J1335; J2916